=== PATIENT | female | born 1950 | race Caucasian/White ===

== ENCOUNTER 2016-08-12 08:21 | Day surgery (SDC) | payer MEDICARE, BC, OTHER ==
[2016-08-07 11:15] VITALS: BMI 37.8
[~2016-08-12 08:21] MED LIST: LACTATED RINGERS 1,000 ML IV SCH; LIDOCAINE 1% 20 ML VIAL (10MG/ML) FOR IV START INTRADERMA PRN
[2016-08-12 08:54] VITALS: RESP 16; TEMP 97.1
[2016-08-12] MEDS ORDERED: PROPOFOL 10 MG/ML 20 ML VIAL IV ONE (09:13)
[2016-08-12] MEDS ORDERED: LIDOCAINE 1% INJ 10MG/ML (20 ML MDV) ONE (09:13)
--- NOTE | 2016-08-12 09:22 | P.GSHP ---
History of Present Illness H&P Date: 08/12/16 Chief Complaint: Screening colonoscopy This is a 66-year-old female referred from Dr. perkins. Patient presents today for screening colonoscopy. Past Medical History Past Medical History: GERD/Reflux, Respiratory Disorder Additional Past Medical History / Comment(s): STATES DR MONITORING ELEVATED BLOODPRESSURE., SCHEDULED FOR SLEEP STUDY, HAS COUGH DUE TO ALLERGIES. History of Any Multi-Drug Resistant Organisms: None Reported Past Surgical History: Appendectomy, Bladder Surgery, Breast Surgery, Cholecystectomy, Hernia Repair, Hysterectomy Additional Past Surgical History / Comment(s): HIATAL HERNIA REPAIR, UMBILICAL HERNIA, BREAST REDUCTION, PARTIAL HYSTERECTOMY, BLADDER SUSPENSION X2, TUBAL . Past Anesthesia/Blood Transfusion Reactions: No Reported Reaction, Family History of Problems w/ Anesthesia, Motion Sickness Additional Past Anesthesia/Blood Transfusion Reaction / Comment(s): MOTHER HAS DIFFICULTY WAKING UP. Past Psychological History: No Psychological Hx Reported Smoking Status: Never smoker Past Alcohol Use History: Occasional Additional Past Alcohol Use History / Comment(s): 4-5 DRINKS ON WEEKEND. Past Drug Use History: None Reported - Past Family History Mother Family Medical History: No Reported History Medications and Allergies Home Medications Medication Instructions Recorded Confirmed Type Benzonatate [Tessalon Perles] 200 mg PO Q8HR PRN 08/07/16 08/07/16 History Ergocalciferol [Vitamin D2] 50,000 unit PO Q7D 08/07/16 08/07/16 History Montelukast [Singulair] 10 mg PO DAILY 08/07/16 08/07/16 History Omeprazole [PriLOSEC] 40 mg PO DAILY 08/07/16 08/07/16 History Raloxifene [Evista] 60 mg PO DAILY 08/07/16 08/07/16 History Sudafed (Unknown Dose) 1 tab PO DIRECTED PRN 08/07/16 08/12/16 History Allergies Allergy/AdvReac Type Severity Reaction Status Date / Time eucalyptus Allergy Unknown Cough Verified 08/07/16 11:05 gluten Allergy Unknown Cough, Verified 08/07/16 11:05 Stomach symptoms. perfume Allergy Unknown Cough Verified 08/07/16 11:05 Sulfa (Sulfonamide Allergy Unknown Itching, Verified 08/07/16 11:05 Antibiotics) Rash Surgical - Exam Vital Signs Temp Pulse Resp BP Pulse Ox 97.1 F L 78 16 135/93 94 L 08/12/16 08:52 08/12/16 08:52 08/12/16 08:52 08/12/16 08:52 08/12/16 08:52 - General well developed, no distress - Eyes PERRL - ENT normal pinna - Neck no masses - Respiratory normal expansion - Cardiovascular Rhythm: regular - Abdomen Abdomen: soft, non tender Assessment and Plan Plan: We'll perform screening colonoscopy.
--- NOTE | 2016-08-12 09:48 | P.OP ---
Date of Procedure: 08/12/16 Preoperative Diagnosis: Screening colonoscopy Postoperative Diagnosis: Diverticulosis Right colon polyp Procedure(s) Performed: Colonoscopy Anesthesia: MAC Surgeon: Fritz Nam Pathology: other (Right colon polyp) Condition: stable Disposition: PACU Description of Procedure: The patient's placed on the endoscopy table lateral position. She received IV sedation. Digital rectal exam was performed which revealed no abnormalities. The flexible colonoscope was then placed patient anus passed throughout the entire colon. The ileocecal valve appeared normal. In the cecum there was a small colon polyp was removed the forcep. The transverse colon and descending colon appeared normal. In the sigmoid colon is mild diverticular changes. The scope was then brought back the rectum and this appeared normal. Scope was withdrawn for patient.
[2016-08-12 10:05] VITALS: BP 129/87; PULSE 79
== END 2016-08-12 10:37 | disposition home or self-care (01) ==
LOC: ORWHC2ENDO 08:21
PROVIDERS: ATTEND Surgery
DX: Z12.11 Encounter for screening for malignant neoplasm of colon (principal); D12.2 Benign neoplasm of ascending colon; K57.30 Diverticulosis of large intestine without perforation or abscess without bleeding; K21.9 Gastro-esophageal reflux disease without esophagitis; Z88.2 Allergy status to sulfonamides; Z91.02 Food additives allergy status; Z79.899 Other long term (current) drug therapy; Z79.810 Long term (current) use of selective estrogen receptor modulators (SERMs)
CPT/HCPCS: 88305; 45380; J2001; J2704; 99153

== ENCOUNTER → 2016-08-18 | Outpatient (CLI) | payer MEDICARE, OTHER ==
--- NOTE | 2016-08-19 08:17 | MM ---
Reason for exam: screening (asymptomatic). Last mammogram was performed 1 year ago. History: Patient is postmenopausal. Family history of breast cancer in maternal aunt. Benign left mammotome panel of the left breast, May 31, 2012. Reductions of both breasts, December 2010. Physical Findings: A clinical breast exam by your physician is recommended on an annual basis and results should be correlated with mammographic findings. MG Screening Mammo w CAD Bilateral CC and MLO view(s) were taken. Prior study comparison: August 07, 2015, bilateral MG screening mammo w CAD. July 07, 2014, right breast MG work up mamm w CAD RT. May 23, 2013, CAD bilateral diagnostic mammogram. There are scattered fibroglandular densities. Finding: There are typically benign vascular, round calcifications in both breasts. Previous mammotome biopsy in the left breast x 3. Asymmetric breast tissue in the right breast posterior upper outer quadrant, stable. There is no discrete abnormality. ASSESSMENT: Benign, BI-RAD 2 RECOMMENDATION: Routine screening mammogram of both breasts in 1 year.
== END | disposition home or self-care (01) ==
LOC: RADMAMWWP 08-13 06:50
PROVIDERS: ATTEND Family Medicine
DX: Z12.31 Encounter for screening mammogram for malignant neoplasm of breast (principal)

== ENCOUNTER → 2017-12-16 | Outpatient (CLI) | payer MEDICARE, OTHER ==
--- NOTE | 2017-12-17 08:33 | MM ---
Reason for exam: screening (asymptomatic). Last mammogram was performed 1 year and 4 months ago. History: Patient is postmenopausal. Family history of breast cancer in maternal aunt. Benign left mammotome panel of the left breast, May 31, 2012. Reductions of both breasts, December 2010. Physical Findings: A clinical breast exam by your physician is recommended on an annual basis and results should be correlated with mammographic findings. MG Screening Mammo w CAD Bilateral CC and MLO view(s) were taken. Prior study comparison: August 18, 2016, bilateral MG screening mammo w CAD. August 07, 2015, bilateral MG screening mammo w CAD. There are scattered fibroglandular densities. Benign appearing bilateral calcifications. No suspicious abnormality. No significant changes when compared with prior studies. ASSESSMENT: Benign, BI-RAD 2 RECOMMENDATION: Routine screening mammogram of both breasts in 1 year.
== END | disposition home or self-care (01) ==
LOC: RADMAMWWP 07:08
PROVIDERS: ATTEND Family Medicine
DX: Z12.31 Encounter for screening mammogram for malignant neoplasm of breast (principal)
CPT/HCPCS: 77067

== ENCOUNTER → 2019-01-11 | Outpatient (CLI) | payer MEDICARE ==
--- NOTE | 2019-01-12 09:00 | MM ---
Reason for exam: screening (asymptomatic). Last mammogram was performed 1 year and 1 month ago. History: Patient is postmenopausal. Family history of breast cancer in maternal aunt. Benign left mammotome panel of the left breast, May 31, 2012. Reductions of both breasts, December 2010. Physical Findings: A clinical breast exam by your physician is recommended on an annual basis and results should be correlated with mammographic findings. MG Screening Mammo w CAD Bilateral CC and MLO view(s) were taken. Prior study comparison: December 16, 2017, bilateral MG screening mammo w CAD. August 18, 2016, bilateral MG screening mammo w CAD. There are scattered fibroglandular densities. Previous mammotome biopsy in the left breast x 3. There is chronic nodularity in the left breast. A couple medial inferior cutaneous lesion right breast seen in 2015. No significant changes when compared with prior studies. ASSESSMENT: Benign, BI-RAD 2 RECOMMENDATION: Routine screening mammogram of both breasts in 1 year.
== END | disposition home or self-care (01) ==
LOC: RADMAMWWP 06:57
PROVIDERS: ATTEND Family Medicine
DX: Z12.31 Encounter for screening mammogram for malignant neoplasm of breast (principal)
CPT/HCPCS: 77067

== ENCOUNTER → 2019-01-13 | Day surgery (SDC) | payer MEDICARE, OTHER ==
[~2019-01-13] MED LIST changes: +LIDOCAINE 1% INJ 10MG/ML (20 ML MDV) ONE; +PROPOFOL 10 MG/ML 20 ML VIAL IV ONE
[2019-01-13 07:13] VITALS: TEMP 98.1
[2019-01-13 07:16] LABS: Glucose,Whole Blood 159 mg/dL (75-99)
--- NOTE | 2019-01-13 07:52 | P.GSHP ---
History of Present Illness H&P Date: 01/13/19 Chief Complaint: History of colon polyps This is a 68-year-old female who presents today for colonoscopy. Patient had a previous colonoscopy. She's had history of colon polyps. She denies a significant checkpoints. Past Medical History Past Medical History: Diabetes Mellitus, GERD/Reflux, Hypertension, Sleep Apnea/CPAP/BIPAP Additional Past Medical History / Comment(s): OSTEOPOROSIS. CHRONIC COUGH. CPAP . History of Any Multi-Drug Resistant Organisms: None Reported Past Surgical History: Appendectomy, Bladder Surgery, Breast Surgery, Cholecystectomy, Heart Catheterization, Hernia Repair, Hysterectomy Additional Past Surgical History / Comment(s): THU FUNDOPLASTY. UMBILICAL HERNIA. BLADDER SUSP. BREAST REDUCTION. Past Anesthesia/Blood Transfusion Reactions: Motion Sickness Additional Past Anesthesia/Blood Transfusion Reaction / Comment(s): MOM TOOK A LONG TIME TO WAKE UP. Past Psychological History: No Psychological Hx Reported Smoking Status: Never smoker Past Alcohol Use History: Occasional Past Drug Use History: None Reported Medications and Allergies Home Medications Medication Instructions Recorded Confirmed Type Ergocalciferol [Vitamin D2] 50,000 unit PO JAMES 08/07/16 01/13/19 History Montelukast [Singulair] 10 mg PO QAM 08/07/16 01/13/19 History Omeprazole [PriLOSEC] 40 mg PO QAM 08/07/16 01/13/19 History Raloxifene [Evista] 60 mg PO QAM 08/07/16 01/13/19 History Amitriptyline HCl [Elavil] 25 mg PO HS 01/11/19 01/13/19 History Losartan [Cozaar] 50 mg PO QAM 01/11/19 01/13/19 History amLODIPine [Norvasc] 5 mg PO QAM 01/11/19 01/13/19 History metFORMIN HCL [Glucophage] 500 mg PO BID 01/11/19 01/13/19 History Allergies Allergy/AdvReac Type Severity Reaction Status Date / Time eucalyptus Allergy Unknown Cough Verified 01/13/19 07:04 gluten Allergy Unknown Cough, Verified 01/13/19 07:04 Stomach symptoms. perfume Allergy Unknown Cough Verified 01/13/19 07:04 Sulfa (Sulfonamide Allergy Unknown Itching, Verified 01/13/19 07:04 Antibiotics) Rash Surgical - Exam Vital Signs Temp Pulse Resp BP Pulse Ox 98.1 F 83 17 145/86 94 L 01/13/19 07:12 01/13/19 07:12 01/13/19 07:12 01/13/19 07:12 01/13/19 07:12 - General well developed, well nourished, no distress - Eyes PERRL - ENT normal pinna - Neck no masses - Respiratory normal expansion - Cardiovascular Rhythm: regular - Abdomen Abdomen: soft, non tender Results - Labs Abnormal Lab Results - Last 24 Hours (Table) 01/13/19 Range/Units 07:13 POC Glucose (mg/dL) 159 H (75-99) mg/dL Assessment and Plan Assessment: History of colon polyps. We'll perform colonoscopy.
--- NOTE | 2019-01-13 08:12 | P.OP ---
Date of Procedure: 01/13/19 Preoperative Diagnosis: History of colon polyps Postoperative Diagnosis: Right colon polyp, hepatic flexure polyp. Diverticulosis External hemorrhoids Procedure(s) Performed: Colonoscopy Anesthesia: MAC Surgeon: Fritz Nam Pathology: other (Right colon polyp, hepatic flexure polyp) Condition: stable Disposition: PACU Description of Procedure: The patient's placed on the endoscopy table in the lateral position. She received IV sedation. Digital rectal exam was performed which revealed external hemorrhoids. Flexible colonoscope was then placed patient anus passed throughout the entire colon. The ileocecal valve was visually. In the right colon there was a small sessile polyp was removed with cold forcep. Scope was then brought back and at the level hepatic flexure there was another polyp seen this removed with the snare. In the transverse colon was a few scattered diverticula. In the descending and; there were a few more diverticula seen. There is no evidence of diverticulitis. The scope was then brought back the rectum and this appeared normal. Scope was withdrawn for patient.
[2019-01-13 08:37] VITALS: BP 120/79; PULSE 74; RESP 18
== END ==
LOC: ORWHC2ENDO 06:44
PROVIDERS: ATTEND Surgery
DX: Z12.11 Encounter for screening for malignant neoplasm of colon (principal); D12.3 Benign neoplasm of transverse colon; D12.2 Benign neoplasm of ascending colon; K57.30 Diverticulosis of large intestine without perforation or abscess without bleeding; K64.4 Residual hemorrhoidal skin tags; K21.9 Gastro-esophageal reflux disease without esophagitis; E11.9 Type 2 diabetes mellitus without complications; I10 Essential (primary) hypertension; G47.33 Obstructive sleep apnea (adult) (pediatric); Z99.89 Dependence on other enabling machines and devices; M81.0 Age-related osteoporosis without current pathological fracture; R05 Cough; Z90.49 Acquired absence of other specified parts of digestive tract; Z90.710 Acquired absence of both cervix and uterus; Z79.84 Long term (current) use of oral hypoglycemic drugs; Z79.890 Hormone replacement therapy; Z79.899 Other long term (current) drug therapy; Z91.02 Food additives allergy status; Z88.2 Allergy status to sulfonamides; Z91.09 Other allergy status, other than to drugs and biological substances
CPT/HCPCS: 88305; 45380; 45385; J2001; J2704

== ENCOUNTER → 2020-02-17 | Outpatient (CLI) | payer MEDICARE ==
--- NOTE | 2020-02-20 09:52 | MM ---
Reason for exam: screening (asymptomatic). Last mammogram was performed 1 year and 1 month ago. History: Patient is postmenopausal. Family history of breast cancer in maternal aunt. Benign left mammotome panel of the left breast, May 31, 2012. Reductions of both breasts, December 2010. Physical Findings: A clinical breast exam by your physician is recommended on an annual basis and results should be correlated with mammographic findings. MG Screening Mammo w CAD Bilateral CC and MLO view(s) were taken. Prior study comparison: January 11, 2019, bilateral MG screening mammo w CAD. December 16, 2017, bilateral MG screening mammo w CAD. The breast tissue is heterogeneously dense. This may lower the sensitivity of mammography. Stable benign calcifications. There is no discrete abnormality. Focal asymmetry upper outer right breast is stable. No significant changes when compared with prior studies. ASSESSMENT: Benign, BI-RAD 2 RECOMMENDATION: Routine screening mammogram of both breasts in 1 year.
== END | disposition home or self-care (01) ==
LOC: RADMAMWWP 07:25
PROVIDERS: ATTEND Family Medicine
DX: Z12.31 Encounter for screening mammogram for malignant neoplasm of breast (principal)
CPT/HCPCS: 77067

== ENCOUNTER 2020-06-08 19:26 | Inpatient (IN) | payer MEDICARE ==
--- NOTE | 2020-06-08 20:14 | XR ---
EXAMINATION TYPE: XR chest 2V DATE OF EXAM: 06/08/2020 COMPARISON: 04/29/2013 HISTORY: Short of breath TECHNIQUE: FINDINGS: There is extensive patchy infiltrate in both lungs. This is interstitial and airspace. Ther e is no pleural effusion. Heart size is normal. Thoracic aorta is intact. There are no hilar masses. IMPRESSION: Bilateral diffuse pneumonia is new compared to old exam. Normal heart.
[2020-06-08] MEDS ORDERED: SODIUM CHLORIDE 0.9% 1,000 ML IV ONE (20:42)
--- NOTE | 2020-06-08 20:45 | ED ---
General Adult HPI - General Source: patient, RN notes reviewed, old records reviewed Mode of arrival: ambulatory Limitations: no limitations <Denice Fields - Last Filed: 06/08/20 23:13> <Marlene Moore - Last Filed: 06/09/20 22:22> - General Chief complaint: Weakness Stated complaint: Weakness Time Seen by Provider: 06/08/20 20:26 - History of Present Illness Initial comments: this Patient is a 70-year-old female presents emergency department today for evaluation for complaints of weakness shortness of breath nausea and vomiting. She was diagnosed with COVID 19 infection on May 29. Patient reports t hat her father was diagnosed with Covid and recently . Patient had been self quarantining since May 24. Patient states that at home she's been taking nausea medication and prescribed azithromycin and Medrol Dosepak. She is a type II diabetic. She states that she's been feeling severely weak fatigued and can't walk within her household without becoming severely short of breath and lightheaded. Patient states that she has had a relatively nonproductive cough. She is a nonsmoker. (Denice Fields) - Related Data Home Medications Medication Instructions Recorded Confirmed Ergocalciferol [Vitamin D2] 50,000 unit PO JAMES 08/07/16 06/08/20 Montelukast [Singulair] 10 mg PO QAM 08/07/16 06/08/20 Omeprazole [PriLOSEC] 40 mg PO QAM 08/07/16 06/08/20 Raloxifene [Evista] 60 mg PO QAM 08/07/16 06/08/20 Amitriptyline HCl [Elavil] 25 mg PO HS PRN 01/11/19 06/08/20 Losartan [Cozaar] 50 mg PO QAM 01/11/19 06/08/20 amLODIPine [Norvasc] 5 mg PO QAM 01/11/19 06/08/20 metFORMIN HCL [Glucophage] 500 mg PO DAILY 01/11/19 06/08/20 Pioglitazone HCl 30 mg PO DAILY 06/08/20 06/08/20 Repaglinide [Prandin] 1 mg PO DAILY 06/08/20 06/08/20 Allergies Allergy/AdvReac Type Severity Reaction Status Date / Time eucalyptus Allergy Unknown Cough Verified 06/08/20 20:52 gluten Allergy Unknown Cough, Verified 06/08/20 20:52 Stomach symptoms. perfume Allergy Unknown Cough Verified 06/08/20 20:52 Sulfa (Sulfonamide Allergy Unknown Itching, Verified 06/08/20 20:52 Antibiotics) Rash Review of Systems ROS Other: All systems not noted in ROS Statement are negative. <Denice Fields - Last Filed: 06/08/20 23:13> ROS Other: All systems not noted in ROS Statement are negative. <Marlene Moore - Last Filed: 06/09/20 22:22> ROS Statement: Those systems with pertinent positive or pertinent negative responses have been documented in the HPI. General Exam Limitations: no limitations General appearance: alert, in no apparent distress Head exam: Present: atraumatic, normocephalic, normal inspection Eye exam: Present: normal appearance, PERRL, EOMI. Absent: scleral icterus, conjunctival injection, periorbital swelling ENT exam: Present: normal exam, mucous membranes moist Neck exam: Present: normal inspection. Absent: tenderness, meningismus, lymphadenopathy Respiratory exam: Present: normal lung sounds bilaterally. Absent: respiratory distress, wheezes, rales, rhonchi, stridor Cardiovascular Exam: Present: regular rate, normal rhythm, normal heart sounds. Absent: systolic murmur, diastolic murmur, rubs, gallop, clicks GI/Abdominal exam: Present: soft, normal bowel sounds. Absent: distended, t enderness, guarding, rebound, rigid Extremities exam: Present: normal inspection, full ROM, normal capillary refill. Absent: tenderness, pedal edema, joint swelling, calf tenderness Back exam: Present: normal inspection Neurological exam: Present: alert, oriented X3, CN II-XII intact Psychiatric exam: Present: normal affect, normal mood <Denice Fields - Last Filed: 06/08/20 23:13> - General Exam Comments Initial Comments: Patient 70-year-old female. Patient appears ill and fatigued. Labored breathing with conversation (Denice Fields) Course Vital Signs 06/08/20 06/08/20 06/08/20 19:29 21:24 22:26 Temperature 99.2 F Pulse Rate 102 H 91 84 Pulse Rate [ Pulse Oximetery ] Respiratory 18 22 21 Rate Blood Pressure 108/69 126/82 115/90 Blood Pressure [Right Arm] O2 Sat by Pulse 95 95 95 Oximetry 06/08/20 06/09/20 06/09/20 23:00 00:49 01:31 Temperature 98.9 F Pulse Rate 79 85 75 Pulse Rate [ Pulse Oximetery ] Respiratory 18 16 16 Rate Blood Pressure 118/65 123/71 130/82 Blood Pressure [Right Arm] O2 Sat by Pulse 96 95 95 Oximetry 06/09/20 06/09/20 06/09/20 03:00 08:00 09:40 Temperature Pulse Rate 71 86 Pulse Rate [ 86 Pulse Oximetery ] Respiratory 24 20 Rate Blood Pressure 108/71 136/78 Blood Pressure [Right Arm] O2 Sat by Pulse 96 96 Oximetry 06/09/20 14:00 Temperature 97.6 F Pulse Rate Pulse Rate [ 88 Pulse Oximetery ] Respiratory 18 Rate Blood Pressure Blood Pressure 126/76 [Right Arm] O2 Sat by Pulse 93 L Oximetry EKG Findings - EKG Comments: EKG Findings:: EKG shows normal sinus rhythm possible a suture enlargement. Inferior infarct age undetermined. Abnormal EKG. Ventricular rate of 88 bpm. Intervals 162 ms. QRS duration is 84 ms. QT EC is 352/425 ms. <Denice Fields - Last Filed: 06/08/20 23:13> Medical Decision Making - Lab Data Result diagrams: 06/08/20 21:12 06/08/20 21:12 - Radiology Data Radiology results: report reviewed <Denice Fields - Last Filed: 06/08/20 23:13> - Lab Data Result diagrams: 06/08/20 21:12 06/08/20 21:12 <Marlene Moore - Last Filed: 06/09/20 22:22> - Medical Decision Making 70-year-old female presents returns today complaint of weakness shortness of breath nausea vomiting. She was diagnosed with Covid 19 infection on May 30. At this time Patientchest x-ray shows evidence of bilateral pneumonia. On conversation she had low oxygen saturation 89-90% on room air. She is placed on 3 L of oxygen. Patient had lab work showing positive inflammatory markers consi stent with pereira virus infection. Patient unfortunately recently dull with her father's passing due to coronavirus infection.at this time with concern for weakness hypoxia Patient will be admitted at this time. I discussed the case with Annette Membreno, whom accepts admission for [facility]. (Denice Fields) I was available for consultation in the emergency department. The history and physical exam were done by the midlevel provider. I was consulted for this patients care. I reviewed the case with the midlevel provider and based on their presentation of the patient, I agree with the assessment, medical decision making and plan of care as documented. Chart was dictated using [employer] dictation software. Attempts were made to correct any dictation errors however some typographical errors may persist. Patient seen during the covid 19 pandemic (Marlene Moore) - Lab Data Lab Results 06/08/20 06/08/20 06/08/20 Range/Units 21:12 21:12 21:12 WBC 7.8 (3.8-10.6) k/uL RBC 4.67 (3.80-5.40) m/uL Hgb 15.0 (11.4-16.0) gm/dL Hct 44.0 (34.0-46.0) % MCV 94.1 (80.0-100.0) fL MCH 32.0 (25.0-35.0) pg MCHC 34.0 (31.0-37.0) g/dL RDW 13.2 (11.5-15.5) % Plt Count 341 (150-450) k/uL MPV 7.1 Neutrophils % 81 % Lymphocytes % 8 % Monocytes % 7 % Eosinophils % 2 % Basophils % 1 % Neutrophils # 6.4 (1.3-7.7) k/uL Lymphocytes # 0.6 L (1.0-4.8) k/uL Monocytes # 0.5 (0-1.0) k/uL Eosinophils # 0.2 (0-0.7) k/uL Basophils # 0.0 (0-0.2) k/uL PT 10.2 (9.0-12.0) sec INR 1.0 (<1.2) APTT 21.9 L (22.0-30.0) sec D-Dimer 0.74 H (<0.60) mg/L FEU Sodium 134 L (137-145) mmol/L Potassium 4.6 (3.5-5.1) mmol/L Chloride 103 (98-107) mmol/L Carbon Dioxide 21 L (22-30) mmol/L Anion Gap 10 mmol/L BUN 17 (7-17) mg/dL Creatinine 0.78 (0.52-1.04) mg/dL Est GFR (CKD-EPI)AfAm >90 (>60 ml/min/1.73 sqM) Est GFR (CKD-EPI)NonAf 78 (>60 ml/min/1.73 sqM) Glucose 134 H (74-99) mg/dL Plasma Lactic Acid Kirit (0.7-2.0) mmol/L Calcium 9.1 (8.4-10.2) mg/dL Magnesium 2.0 (1.6-2.3) mg/dL Ferritin 441.8 H (10.0-291.0) ng/mL Total Bilirubin 1.1 (0.2-1.3) mg/dL AST 50 H (14-36) U/L ALT 34 (4-34) U/L Alkaline Phosphatase 39 (38-126) U/L Lactate Dehydrogenase 1000 H (313-618) U/L C-Reactive Protein 152.3 H (<10.0) mg/L Total Protein 7.1 (6.3-8.2) g/dL Albumin 3.7 (3.5-5.0) g/dL Procalcitonin (0.02-0.09) ng/mL 06/08/20 06/08/20 Range/Units 21:12 21:12 WBC (3.8-10.6) k/uL RBC (3.80-5.40) m/uL Hgb (11.4-16.0) gm/dL Hct (34.0-46.0) % MCV (80.0-100.0) fL MCH (25.0-35.0) pg MCHC (31.0-37.0) g/dL RDW (11.5-15.5) % Plt Count (150-450) k/uL MPV Neutrophils % % Lymphocytes % % Monocytes % % Eosinophils % % Basophils % % Neutrophils # (1.3-7.7) k/uL Lymphocytes # (1.0-4.8) k/uL Monocytes # (0-1.0) k/uL Eosinophils # (0-0.7) k/uL Basophils # (0-0.2) k/uL PT (9.0-12.0) sec INR (<1.2) APTT (22.0-30.0) sec D-Dimer (<0.60) mg/L FEU Sodium (137-145) mmol/L Potassium (3.5-5.1) mmol/L Chloride (98-107) mmol/L Carbon Dioxide (22-30) mmol/L Anion Gap mmol/L BUN (7-17) mg/dL Creatinine (0.52-1.04) mg/dL Est GFR (CKD-EPI)AfAm (>60 ml/min/1.73 sqM) Est GFR (CKD-EPI)NonAf (>60 ml/min/1.73 sqM) Glucose (74-99) mg/dL Plasma Lactic Acid Kirit 1.6 (0.7-2.0) mmol/L Calcium (8.4-10.2) mg/dL Magnesium (1.6-2.3) mg/dL Ferritin (10.0-291.0) ng/mL Total Bilirubin (0.2-1.3) mg/dL AST (14-36) U/L ALT (4-34) U/L Alkaline Phosphatase (38-126) U/L Lactate Dehydrogenase (313-618) U/L C-Reactive Protein (<10.0) mg/L Total Protein (6.3-8.2) g/dL Albumin (3.5-5.0) g/dL Procalcitonin 0.16 H (0.02-0.09) ng/mL - Radiology Data Bilateral diffuse pneumonia is continue compared old exam. Normal heart. (Deniec Fields) Disposition Is patient prescribed a controlled substance at d/c from ED?: No Time of Disposition: 23:15 <Denice Fields - Last Filed: 06/08/20 23:13> <Marlene Moore - Last Filed: 06/09/20 22:22> Clinical Impression: COVID-19, Hypoxia, Pneumonia, Weakness Disposition: ADMITTED IP TO THIS HOSP Condition: Stable
[2020-06-08] MEDS: SODIUM CHLORIDE 0.9% 1,000 ML IV SCH (21:17)
[2020-06-08 21:43] LABS: African American GFR (CKD) >90 (>60 ml/min/1.73 sqM); Albumin 3.7 g/dL (3.5-5.0); Anion Gap 10 mmol/L; Calcium 9.1 mg/dL (8.4-10.2); Carbon Dioxide 21 mmol/L (22-30); Chloride 103 mmol/L (98-107); Glucose 134 mg/dL (74-99); LDH 1000 U/L (313-618); Non-African American GFR(CKD) 78 (>60 ml/min/1.73 sqM); Sodium 134 mmol/L (137-145); Total Bilirubin 1.1 mg/dL (0.2-1.3); Total Protein 7.1 g/dL (6.3-8.2)
[2020-06-08 21:48] LABS: Basophils % (A) 1 %; Eosinophils # (A) 0.2 k/uL (0-0.7); Eosinophils % (A) 2 %; Lymphocytes # (A) 0.6 k/uL (1.0-4.8); Lymphocytes % (A) 8 %; MCV 94.1 fL (80.0-100.0); Mean Platelet Volume 7.1; Monocytes # (A) 0.5 k/uL (0-1.0); Monocytes % (A) 7 %; Neutrophils # (A) 6.4 k/uL (1.3-7.7); Neutrophils % (A) 81 %; Platelet Count 341 k/uL (150-450); RBC 4.67 m/uL (3.80-5.40); RDW 13.2 % (11.5-15.5); WBC 7.8 k/uL (3.8-10.6)
[2020-06-08 21:53] LABS: C Reactive Protein 152.3 mg/L (<10.0)
[2020-06-08 21:58] LABS: ALT 34 U/L (4-34); AST 50 U/L (14-36); Alkaline Phosphatase 39 U/L (38-126); Blood Urea Nitrogen 17 mg/dL (7-17); Potassium 4.6 mmol/L (3.5-5.1)
[2020-06-08] MEDS: ALBUTEROL HFA INHALER INHALATION STA ×2 (22:00→23:16)
[2020-06-08 22:04] LABS: Partial Thromboplastin Time 21.9 sec (22.0-30.0); Prothrombin Time 10.2 sec (9.0-12.0)
[2020-06-08 22:19] LABS: D-Dimer 0.74 mg/L FEU (<0.60)
[2020-06-08] MEDS ORDERED: cefTRIAXone IN SWFI 1,000 MG/10 ML SYRINGE IVP STA (22:37)
[2020-06-08] MEDS ORDERED: IPRATROPIUM-ALBUTEROL 3 ML NEB INHALATION PRN (23:19)
[2020-06-08] MEDS ORDERED: methylPREDNISolone SOD SUCCI 125 MG/2 ML VIAL IV STA (23:19)
[2020-06-08] MEDS ORDERED: ACETAMINOPHEN TAB 500 MG TAB PO PRN (23:22)
[2020-06-08] MEDS ORDERED: AMITRIPTYLINE HCL 25 MG TAB PO PRN (23:24)
[2020-06-09] MEDS ORDERED: DOXYCYCLINE 100 MG in SODIUM CHLORIDE 0.9% 100 ML IVPB SCH (00:30)
[2020-06-09 03:53] LABS: Ferritin 441.8 ng/mL (10.0-291.0)
[2020-06-09] MEDS: SODIUM CHLORIDE 0.9% 1,000 ML IV SCH ×2 (05:27→17:33)
[2020-06-09] MEDS ORDERED: methylPREDNISolone SOD SUCCI 125 MG/2 ML VIAL IV SCH (06:00)
[2020-06-09] MEDS: INSULIN ASPART (NovoLOG) 100 UNIT/ML VIAL SQ SCH ×4 (08:04→20:12)
[2020-06-09] MEDS: RALOXIFENE 60 MG TAB PO SCH (08:51)
[2020-06-09] MEDS: dexAMETHasone 2 MG TAB PO SCH (08:51)
[2020-06-09] MEDS: PIOGLITAZONE 30 MG TAB PO SCH (08:51)
[2020-06-09] MEDS: ASCORBIC ACID 500 MG TAB PO SCH (08:52)
[2020-06-09] MEDS: PANTOPRAZOLE 40 MG TABLET PO SCH (08:52)
[2020-06-09] MEDS: LOSARTAN 50 MG TAB PO SCH (08:52)
[2020-06-09] MEDS: amLODIPine 5 MG TAB PO SCH (08:52)
[2020-06-09] MEDS: ZINC SULFATE 220 MG CAP PO SCH (08:52)
[2020-06-09] MEDS: ENOXAPARIN 40 MG/0.4 ML SYRINGE SQ SCH (08:53)
[2020-06-09] MEDS ORDERED: metFORMIN 500 MG TAB PO SCH (09:00)
[2020-06-09 09:01] LABS: Glucose,Whole Blood 179 mg/dL (75-99)
[2020-06-09] MEDS: ALBUTEROL HFA INHALER INHALATION SCH ×4 (09:45→19:15)
--- NOTE | 2020-06-09 10:29 | CONS ---
CONSULTATION PULMONARY/CRITICAL CARE CONSULTATION: DATE OF SERVICE: June 09, 2020 REASON FOR CONSULTATION: Weakness. HISTORY OF PRESENT ILLNESS: 70-year-old female presents to the emergency department for evaluation of weakness. She did have some mild shortness of breath, nausea and vomiting. Mostly GI issues. She apparently was diagnosed with COVID-19 infection on Thursday, May 29, the Thursday before . She states apparently her father recently from Covid infection. She has been quarantining herself for some period of time. She has been taking medications for nausea. Anyway, she was just feeling very weak and fatigued, really could not walk or do anything around the home. For that reason, she came into the emergency room to be evaluated. Her cough is relatively mild and nonproductive. She is a nonsmoker. Her primary care physician is Dr. Paredes. Currently, she is getting saline at 100 mL an hour and O2 of 4 L/minute by nasal cannula. CURRENT HOME MEDICATIONS: Include vitamin D2, Singulair, Prilosec, Evista, Elavil, Cozaar, Norvasc, Glucophage, pioglitazone, and Prandin. ALLERGIES: Include eucalyptus, gluten, perfume, and sulfa. MEDICAL HISTORY: Medical history is positive for diabetes mellitus, GERD, hypertension, sleep apnea syndrome, and osteoporosis. SURGICAL HISTORY: Includes appendectomy, bladder surgery, breast surgery, cholecystectomy, heart catheterization, hernia repair, and hysterectomy. She has also had a Jak fundal plication surgery, and her breast surgery was a breast reduction. SOCIAL HISTORY: Positive for occasional alcohol. No illicit drug use. Hence, she is a lifelong nonsmoker. REVIEW OF SYSTEMS: CONSTITUTIONAL weakness, fatigue. NEUROLOGIC negative. HEENT negative. CARDIOVASCULAR negative. PULMONARY: Mild shortness of breath, nonproductive cough. GI is nausea, vomiting, abdominal cramping. negative. RHEUMATOLOGIC negative. IMMUNOLOGIC negative. ENDOCRINOLOGIC negative. DERMATOLOGIC: Negative. PHYSICAL EXAMINATION: VITAL SIGNS: Current vital signs include temperature 98.9, heart rate 71, respiratory rate 24, blood pressure is 108/71, mean 83, 2 L saturation 96%. GENERAL: Appears in no acute distress. HEENT: Examination is grossly unremarkable. Nasal O2 in place. NECK: Supple full range of motion. No adenopathy. Neck veins are flat. CARDIOVASCULAR: Examination reveals regular rhythm and rate. Heart rate 71 beats per minute. S1, S2 normal. LUNGS: Reveal mostly clear breath sounds. A few scattered mild rhonchi. No wheezes or crackles. ABDOMEN: Soft. EXTREMITIES are intact. No edema. SKIN: Without rash. NEUROLOGIC: Examination is nonfocal. LABS: Reviewed. White count 7.8, hemoglobin 15, hematocrit 44.0, platelet count is 341,000. The patient is a bit lymphopenic. PT 10.2, INR 1, PTT is 21.9. D-dimer 0.74. Sodium 134, potassium 4.6, chloride 103, CO2 21, anion gap is normal. BUN and creatinine were 17 and 0.78. Glucose 134, ferritin 442, AST 50, LDH 1000. C-reactive protein 152.3. Procalcitonin 0.16. A chest x-ray done yesterday shows bilateral patchy infiltrates. Medications reviewed. The patient is on Tylenol, albuterol inhaler, Elavil, amlodipine, ceftriaxone, doxycycline, Lovenox, vitamin D2, insulin, DuoNeb, losartan, metformin, Solu-Medrol, Singulair, Protonix, Actos, Evista, Prandin and saline. ASSESSMENT: 1. COVID-19 pneumonitis/pneumonia and very mild hypoxemic respiratory failure. 2. COVID 19 gastrointestinal symptoms primarily. 3. History of diabetes mellitus. 4. History of gastroesophageal reflux disease. 5. Hypertension. 6. History of sleep apnea syndrome. 7. Osteoporosis. 8. Multiple surgical procedures including a Jak fundoplication. PLAN: The patient's medications are adjusted. She will be placed on albuterol inhaler and Decadron. We will give her vitamin C, vitamin D3, and zinc. She should be on Decadron 6 mg p.o. daily for 10 days. Additional recommendations and suggestions are forthcoming. She is beyond the Remdesivir window and her respiratory symptoms are not significant enough to be placed on Remdesivir. No additional recommendations are made. Additional antibiotics are likely not indicated in this patient and should be discontinued. MMODL / IJN: [id number] /
[2020-06-09] MEDS: CHOLECALCIFEROL 400 UNIT TAB PO SCH (13:21)
[2020-06-09 13:31] LABS: Glucose,Whole Blood 168 mg/dL (75-99)
[2020-06-09 16:42] LABS: Glucose,Whole Blood 199 mg/dL (75-99)
[2020-06-09] MEDS: REPAGLINIDE 1 MG TAB PO SCH (17:35)
[2020-06-09 20:04] LABS: Glucose,Whole Blood 169 mg/dL (75-99)
[2020-06-09] MEDS: MONTELUKAST 10 MG TAB PO SCH (20:12)
--- NOTE | 2020-06-10 00:50 | P.HPIM ---
History of Present Illness H&P Date: 06/09/20 Chief Complaint: fatigue, weakness, Nausea Ms. Cruz is a 70-year-old female with a past medical history of diabetes mellitus and hypertension coming to the hospital with a chief complaint of generalized weakness along with difficulty in breathing and vomiting. Patient was recently diagnosed with COVID-19 infection on May 29. Patient's father from Covid recently. Patient has been taking azithromycin and Medrol Dosepak at home. Patient continues to have nausea vomiting along with diarrhea and was feeling very weak and fatigued so came into the emergency for further evaluation. In the ER patient was found to have positive inflammatory markers consistent with coronavirus infection and chest x-ray showing evidence of bilateral pneum onia patient has been saturating in low 90s on 3 L of oxygen. So patient has been admitted for further management. Review of Systems Constitutional: +ve for generalized weakness . No weight loss. Abdomen: As per HPI Cardiovascular: Patient denies any chest pain or short of breath no palpitations. Respiratory: mild SOB Neurologic: Patient denied any numbness or tingling headache. Musculoskeletal: Patient denies any complaints of joint swelling or deformity. Skin: no rash Psychiatric: no anxiety or depression Endocrine: No heat or cold intolerance. No recent weight gain. Genitourinary: No dysuria or hematuria. All other 14 point ROS negative except the above Past Medical History Past Medical History: Diabetes Mellitus, Hypertension History of Any Multi-Drug Resistant Organisms: None Reported Past Surgical History: Appendectomy, Breast Surgery, Cholecystectomy, Hysterectomy, Tubal Ligation Additional Past Surgical History / Comment(s): partial hysto, hital hernia, breast reduction Past Anesthesia/Blood Transfusion Reactions: No Reported Reaction Past Psychological History: No Psychological Hx Reported Smoking Status: Never smoker Past Drug Use History: None Reported Medications and Allergies Home Medications Medication Instructions Recorded Confirmed Type Ergocalciferol [Vitamin D2] 50,000 unit PO JAMES 08/07/16 06/08/20 History Montelukast [Singulair] 10 mg PO QAM 08/07/16 06/08/20 History Omeprazole [PriLOSEC] 40 mg PO QAM 08/07/16 06/08/20 History Raloxifene [Evista] 60 mg PO QAM 08/07/16 06/08/20 History Amitriptyline HCl [Elavil] 25 mg PO HS PRN 01/11/19 06/08/20 History Losartan [Cozaar] 50 mg PO QAM 01/11/19 06/08/20 History amLODIPine [Norvasc] 5 mg PO QAM 01/11/19 06/08/20 History metFORMIN HCL [Glucophage] 500 mg PO DAILY 01/11/19 06/08/20 History Pioglitazone HCl 30 mg PO DAILY 06/08/20 06/08/20 History Repaglinide [Prandin] 1 mg PO DAILY 06/08/20 06/08/20 History Allergies Allergy/AdvReac Type Severity Reaction Status Date / Time eucalyptus Allergy Unknown Cough Verified 06/08/20 20:52 gluten Allergy Unknown Cough, Verified 06/08/20 20:52 Stomach symptoms. perfume Allergy Unknown Cough Verified 06/08/20 20:52 Sulfa (Sulfonamide Allergy Unknown Itching, Verified 06/08/20 20:52 Antibiotics) Rash Physical Exam Vitals: Vital Signs Temp Pulse Pulse Resp BP Pulse Ox 06/09/20 09:40 86 20 136/78 96 06/09/20 08:00 86 06/09/20 03:00 71 24 108/71 96 06/09/20 01:31 75 16 130/82 95 06/09/20 00:49 98.9 F 85 16 123/71 95 06/08/20 23:00 79 18 118/65 96 06/08/20 22:26 84 21 115/90 95 06/08/20 21:24 91 22 126/82 95 06/08/20 19:29 99.2 F 102 H 18 108/69 95 Intake and Output 06/08/20 06/09/20 06/09/20 22:59 06:59 14:59 Other: Voiding Method Toilet # Voids 1 Weight 93.894 kg 93.894 kg PHYSICAL EXAMINATION: Patient is lying in the bed comfortably, no acute distress, awake alert and heriberto ented. HEENT: Normocephalic. Neck is supple. Pupils reactive. Nostrils clear. Oral cavity is moist. Ears reveal no drainage. Neck reveals no JVD, carotid bruits, or thyromegaly. CHEST EXAMINATION: Decreased BS in all lung mays. CARDIAC: Normal S1, S2 with no gallops. No murmurs ABDOMEN: Soft. Bowel sounds normal. No organomegaly. No abdominal bruits. Extremities: reveal no edema. No clubbing or cyanosis Neurologically awake, alert, oriented x3 with well-coordinated movements. No focal deficits noted Skin: No rash or skin lesions. Psychiatric: Coperative. Nonsuicidal Musculoskeletal: No joint swelling or deformity. Normal range of motion. Results CBC & Chem 7: 06/08/20 21:12 06/08/20 21:12 Labs: Abnormal Lab Results - Last 24 Hours (Table) 06/08/20 06/08/20 06/08/20 Range/Units 21:12 21:12 21:12 Lymphocytes # 0.6 L (1.0-4.8) k/uL APTT 21.9 L (22.0-30.0) sec D-Dimer 0.74 H (<0.60) mg/L FEU Sodium 134 L (137-145) mmol/L Carbon Dioxide 21 L (22-30) mmol/L Glucose 134 H (74-99) mg/dL POC Glucose (mg/dL) (75-99) mg/dL Ferritin 441.8 H (10.0-291.0) ng/mL AST 50 H (14-36) U/L Lactate Dehydrogenase 1000 H (313-618) U/L C-Reactive Protein 152.3 H (<10.0) mg/L Procalcitonin (0.02-0.09) ng/mL 06/08/20 06/09/20 Range/Units 21:12 08:50 Lymphocytes # (1.0-4.8) k/uL APTT (22.0-30.0) sec D-Dimer (<0.60) mg/L FEU Sodium (137-145) mmol/L Carbon Dioxide (22-30) mmol/L Glucose (74-99) mg/dL POC Glucose (mg/dL) 179 H (75-99) mg/dL Ferritin (10.0-291.0) ng/mL AST (14-36) U/L Lactate Dehydrogenase (313-618) U/L C-Reactive Protein (<10.0) mg/L Procalcitonin 0.16 H (0.02-0.09) ng/mL Thrombosis Risk Factor Assmnt - Choose All That Apply Any of the Below Risk Factors Present?: Yes Each Factor Represents 1 point: Obesity (BMI >25) Other Risk Factors: Yes Each Risk Factor Represents 2 Points: Age 61-74 years Other congenital or acquired thrombophilia - If yes, enter type in comment: No Thrombosis Risk Factor Assessment Total Risk Factor Score: 3 Thrombosis Risk Factor Assessment Level: Moderate Risk Assessment and Plan Assessment: ASSESSMENT Nausea vomiting -due to COVID-19 infection Hypoxic respiratory failure-Covid pneumonia Hypertension Type 2 diabetes mellitus GERD Obstructive sleep apnea Increased inflammatory markers PLAN: Patient has been started on Decadron. Continue with breathing treatments and vitamin supplementation. Pulmonary on board and following the patient. Patient has been restarted on her home medications. Further recommendations to follow depending on the progress of the patient.
[2020-06-10] MEDS: SODIUM CHLORIDE 0.9% 1,000 ML IV SCH ×2 (04:35→16:49)
[2020-06-10 07:10] LABS: Glucose,Whole Blood 146 mg/dL (75-99)
[2020-06-10 07:17] LABS: Basophils % (A) 0 %; Eosinophils % (A) 0 %; HCT 37.6 % (34.0-46.0); HGB 12.6 gm/dL (11.4-16.0); Lymphocytes # (A) 0.7 k/uL (1.0-4.8); Lymphocytes % (A) 7 %; MCH 32.1 pg (25.0-35.0); MCHC 33.7 g/dL (31.0-37.0); MCV 95.3 fL (80.0-100.0); Mean Platelet Volume 6.9; Monocytes # (A) 0.5 k/uL (0-1.0); Monocytes % (A) 5 %; Neutrophils # (A) 8.8 k/uL (1.3-7.7); Neutrophils % (A) 86 %; Platelet Count 353 k/uL (150-450); RBC 3.94 m/uL (3.80-5.40); RDW 12.8 % (11.5-15.5); WBC 10.3 k/uL (3.8-10.6)
[2020-06-10] MEDS: INSULIN ASPART (NovoLOG) 100 UNIT/ML VIAL SQ SCH ×4 (07:33→20:19)
[2020-06-10] MEDS: ENOXAPARIN 40 MG/0.4 ML SYRINGE SQ SCH (07:34)
[2020-06-10] MEDS: CHOLECALCIFEROL 400 UNIT TAB PO SCH (07:35)
[2020-06-10] MEDS: dexAMETHasone 2 MG TAB PO SCH (07:35)
[2020-06-10] MEDS: ASCORBIC ACID 500 MG TAB PO SCH (07:35)
[2020-06-10] MEDS: amLODIPine 5 MG TAB PO SCH (07:36)
[2020-06-10] MEDS: PANTOPRAZOLE 40 MG TABLET PO SCH (07:36)
[2020-06-10] MEDS: ZINC SULFATE 220 MG CAP PO SCH (07:36)
[2020-06-10] MEDS: PIOGLITAZONE 30 MG TAB PO SCH (07:37)
[2020-06-10] MEDS: LOSARTAN 50 MG TAB PO SCH (07:37)
[2020-06-10] MEDS: RALOXIFENE 60 MG TAB PO SCH (07:38)
[2020-06-10] MEDS: ALBUTEROL HFA INHALER INHALATION SCH ×4 (07:46→19:09)
[2020-06-10] MEDS ORDERED: ERGOCALCIFEROL 50,000 UNIT CAP PO SCH (09:00)
[2020-06-10 09:50] VITALS: BMI 37.8
[2020-06-10 11:31] LABS: Glucose,Whole Blood 150 mg/dL (75-99)
[2020-06-10 11:54] LABS: African American GFR (CKD) 102.5 (60.0-200.0); BUN/Creat Ratio 24.29 Ratio (12.00-20.00); Calcium 8.7 mg/dL (8.7-10.3); Non-African American GFR(CKD) 88.4 (60.0-200.0); Potassium 4.3 mmol/L (3.5-5.5)
[2020-06-10 16:47] LABS: Glucose,Whole Blood 244 mg/dL (75-99)
[2020-06-10] MEDS: REPAGLINIDE 1 MG TAB PO SCH (17:39)
--- NOTE | 2020-06-10 18:18 | PN ---
PROGRESS NOTE PULMONARY/CRITICAL CARE PROGRESS NOTE: DATE OF SERVICE: June 10, 2020 This is a 70-year-old female who we saw yesterday in consultation. The patient presented to the emergency department for evaluation of weakness. She has some mild shortness of breath, but mostly GI issues including nausea, vomiting, and some abdominal discomfort. She was diagnosis with COVID-19 infection on Thursday, May 29, the Thursday before . She states apparently her father recently from COVID infection. She apparently had been quarantining herself for some period of time. Anyway, she felt like she was having continued and worsened weakness and fatigue. She could not walk around in the house and decided to come in to be evaluated. Her cough is relatively mild and nonproductive. She is a nonsmoker. Her primary is Dr. Paredes. Currently, she is feeling a bit better. She is still having issues with her gastrointestinal tract. Her shortness of breath is about the same. Denies any fever. No chest pain or chest discomfort. PHYSICAL EXAMINATION: VITAL SIGNS: Current vital signs include temperature 97.9, heart rate 76, respiratory rate 18, blood pressure 117/70, mean 85, 4 L saturation 94%. Appears in no acute distress. HEENT: Examination is grossly unremarkable. Nasal O2 in place. NECK: Supple. Full range of motion. No adenopathy. Neck veins are flat. CARDIOVASCULAR: Examination reveals regular rhythm and rate. S1, S2 normal. No S3, S4, or murmur. LUNGS: Reveal scattered rhonchi. No wheezes or crackles. ABDOMEN: Soft. Bowel sounds are noted. No tenderness. EXTREMITIES are intact. No cyanosis, clubbing, or edema. SKIN: Without rash. NEUROLOGIC: Examination is nonfocal. LABS: Include a white count 10.3, hemoglobin 12.6, hematocrit 37.6, platelet count normal. Sodium 141, potassium 4.3, chloride 110, CO2 24, anion gap is 7. BUN and creatinine were 17 and 0.7. Microbiology is currently negative. Chest x-ray from the shows bilateral diffuse pneumonia. MEDICATIONS: Reviewed. Currently, the patient is on Tylenol, albuterol inhaler, Elavil, Norvasc, vitamin C, vitamin D3, Decadron, Lovenox, vitamin D2, insulin, Cozaar, Singulair, Protonix, Actos, Evista, Prandin, and zinc. ASSESSMENT: 1. COVID-19 pneumonitis/pneumonia with very mild hypoxemic respiratory failure. 2. COVID-19 gastrointestinal symptoms, primarily nausea, vomiting, diarrhea, abdominal discomfort, as her primary presenting complaint. 3. History of diabetes mellitus. 4. History of gastroesophageal reflux disease. 5. Hypertension. 6. History of sleep apnea syndrome. 7. Osteoporosis. 8. Multiple surgical procedures including a Jak fundoplication. PLAN: The patient's chest x-ray will be repeated tomorrow morning. We will continue with the current medications including Decadron, vitamin C, vitamin D3, and zinc. We will continue to follow. She is beyond the Remdesivir window. The respiratory symptoms were minor. She had much more in the way of GI symptoms. Additional recommendations and suggestions are forthcoming. We will still watch the patient carefully as the patient is requiring 4 L nasal cannula. MMODL / IJN: [id number] /
[2020-06-10 20:17] LABS: Glucose,Whole Blood 139 mg/dL (75-99)
[2020-06-10] MEDS: MONTELUKAST 10 MG TAB PO SCH (20:19)
--- NOTE | 2020-06-11 00:48 | P.PN ---
Subjective Progress Note Date: 06/10/20 Principal diagnosis: COVID Pneumonia Ms. Cruz is a 70-year-old female with a past medical history of diabetes mellitus and hypertension coming to the hospital with a chief complaint of generalized weakness along with difficulty in breathing and vomiting. Patient was recently diagnosed with COVID-19 infection on May 29. Patient's father from Covid recently. Patient has been taking azithromycin and Medrol Dosepak at home. Patient continues to have nausea vomiting along with diarrhea and was feeling very weak and fatigued so came into the emergency for further evaluation. In the ER patient was found to have positive inflammatory markers consistent with coronavirus infection and chest x-ray showing evidence of bilateral pneumonia patient has been saturating in low 90s on 3 L of oxygen. So patient has been admitted for further management. On 06/10/2020-patient is seen and examined. She is comfortably sitting up in a chair by the bedside appears to be in no acute distress. Patient still complaining of dry cough and mild difficulty in breathing. But states that she feels little better compared to yesterday. She still complaining of nausea but better compared to yesterday. Patient denies having any fevers, chills or rigors. No dysuria or hematuria. On reviewing the labs patient's temperature 97.6, heart rate 77 respiratory rate 22, blood pressure 116 x 71, saturating at 95% on 4 L of nasal cannula. Labs from this morning showing white count of 10.3, hemoglobin 12.6, platelets 353. Sodium 141 potassium 4.3 chloride 110, bicarb 24. Creatinine is 0.7 Active Medications Acetaminophen (Acetaminophen Tab 500 Mg Tab) 1,000 mg PO Q6HR PRN PRN Reason: Fever>101 Albuterol Sulfate (Albuterol Hfa Inhaler) 1 puff INHALATION RT-QID [facility] Last Admin: 06/10/20 19:09 Dose: 1 puff Documented by: Amitriptyline HCl (Amitriptyline Hcl 25 Mg Tab) 25 mg PO HS PRN PRN Reason: RELAX VOCAL CORDS Amlodipine Besylate (Amlodipine 5 Mg Tab) 5 mg PO QAM [facility] Last Admin: 06/10/20 07:36 Dose: 5 mg Documented by: Ascorbic Acid (Ascorbic Acid 500 Mg Tab) 1,000 mg PO DAILY [facility] Last Admin: 06/10/20 07:35 Dose: 1,000 mg Documented by: Cholecalciferol (Cholecalciferol 400 Unit Tab) 400 unit PO DAILY [facility] Last Admin: 06/10/20 07:35 Dose: 400 unit Documented by: Dexamethasone (Dexamethasone 2 Mg Tab) 6 mg PO DAILY [facility] Last Admin: 06/10/20 07:35 Dose: 6 mg Documented by: Enoxaparin Sodium (Enoxaparin 40 Mg/0.4 Ml Syringe) 40 mg SQ Q24HR [facility] Last Admin: 06/10/20 07:34 Dose: 40 mg Documented by: Ergocalciferol (Ergocalciferol 50,000 Unit Cap) 50,000 unit PO JAMES [facility] Last Admin: 06/10/20 07:37 Dose: 50,000 unit Documented by: Sodium Chloride (Saline 0.9%) 1,000 mls @ 100 mls/hr IV .Q10H [facility] Last Admin: 06/10/20 16:49 Dose: Not Given Documented by: Insulin Aspart (Insulin Aspart (Novolog) 100 Unit/Ml Vial) 0 unit SQ ACHS [facility]; Protocol Last Admin: 06/10/20 20:19 Dose: Not Given Documented by: Losartan Potassium (Losartan 50 Mg Tab) 50 mg PO QAM [facility] Last Admin: 06/10/20 07:37 Dose: 50 mg Documented by: Montelukast Sodium (Montelukast 10 Mg Tab) 10 mg PO HS [facility] Last Admin: 06/10/20 20:19 Dose: 10 mg Documented by: Pantoprazole Sodium (Pantoprazole 40 Mg Tablet) 40 mg PO QAM [facility] Last Admin: 06/10/20 07:36 Dose: 40 mg Documented by: Pioglitazone HCl (Pioglitazone 30 Mg Tab) 30 mg PO DAILY [facility] Last Admin: 06/10/20 07:37 Dose: 30 mg Documented by: Raloxifene HCl (Raloxifene 60 Mg Tab) 60 mg PO QAM [facility] Last Admin: 06/10/20 07:38 Dose: 60 mg Documented by: Repaglinide (Repaglinide 1 Mg Tab) 1 mg PO AC-SUPPER [facility] Last Admin: 06/10/20 17:39 Dose: 1 mg Documented by: Zinc Sulfate (Zinc Sulfate 220 Mg Cap) 220 mg PO DAILY [facility] Last Admin: 06/10/20 07:36 Dose: 220 mg Documented by: Objective - Vital Signs Vital signs: Vital Signs Temp 97.9 F 06/10/20 14:00 Pulse 76 06/10/20 14:00 Resp 18 06/10/20 14:00 BP 117/70 06/10/20 14:00 Pulse Ox 94 L 06/10/20 14:00 Intake & Output 06/09/20 06/10/20 06/10/20 18:59 06:59 18:59 Weight 93.894 kg Other: Voiding Method Toilet # Voids 2 2 - Exam PHYSICAL EXAMINATION: HEENT: Normocephalic. Neck is supple. Pupils reactive. Nostrils clear. Oral cavity is moist. Ears reveal no drainage. Neck reveals no JVD, carotid bruits, or thyromegaly. CHEST EXAMINATION: Decreased BS in all lung mays. CARDIAC: Normal S1, S2 with no gallops. No murmurs ABDOMEN: Soft. Bowel sounds normal. No organomegaly. No abdominal bruits. Extremities: reveal no edema. No clubbing or cyanosis Neurologically awake, alert, oriented x3 with well-coordinated movements. No focal deficits noted Skin: No rash or skin lesions. Psychiatric: Coperative. Nonsuicidal Musculoskeletal: No joint swelling or deformity. Normal range of motion. - Labs CBC & Chem 7: 06/10/20 06:32 06/10/20 06:32 Labs: Abnormal Lab Results - Last 24 Hours (Table) 06/09/20 06/10/20 06/10/20 Range/Units 20:02 06:32 06:32 Neutrophils # 8.8 H (1.3-7.7) k/uL Lymphocytes # 0.7 L (1.0-4.8) k/uL Chloride 110 H (96-109) mmol/L BUN/Creatinine Ratio 24.29 H (12.00-20.00) Ratio Glucose 162 H (70-110) mg/dL POC Glucose (mg/dL) 169 H (75-99) mg/dL 06/10/20 06/10/20 06/10/20 Range/Units 07:08 11:30 16:44 Neutrophils # (1.3-7.7) k/uL Lymphocytes # (1.0-4.8) k/uL Chloride (96-109) mmol/L BUN/Creatinine Ratio (12.00-20.00) Ratio Glucose (70-110) mg/dL POC Glucose (mg/dL) 146 H 150 H 244 H (75-99) mg/dL Microbiology - Last 24 Hours (Table) 06/08/20 21:12 Blood Culture - Preliminary Blood No Growth after 24 hours 06/08/20 21:12 Blood Culture - Preliminary Blood No Growth after 24 hours Assessment and Plan Assessment: ASSESSMENT Nausea vomiting -due to COVID-19 infection Hypoxic respiratory failure-Covid pneumonia Hypertension Type 2 diabetes mellitus GERD Obstructive sleep apnea Increased inflammatory markers PLAN: Patient has been started on Decadron. Patient's blood sugars have been running on the higher side, but patient has been refusing insulin. Continue with breathing treatments and vitamin supplementation. Pulmonary on board and following the patient. Patient has been restarted on her home medications. Further recommendations to follow depending on the progress of the patient.
[2020-06-11] MEDS: SODIUM CHLORIDE 0.9% 1,000 ML IV SCH ×2 (04:16→07:51)
[2020-06-11 06:43] LABS: Basophils % (A) 0 %; Eosinophils % (A) 0 %; HCT 37.3 % (34.0-46.0); HGB 12.7 gm/dL (11.4-16.0); Lymphocytes # (A) 0.7 k/uL (1.0-4.8); Lymphocytes % (A) 8 %; MCH 32.2 pg (25.0-35.0); MCV 94.6 fL (80.0-100.0); Mean Platelet Volume 6.8; Monocytes # (A) 0.4 k/uL (0-1.0); Monocytes % (A) 4 %; Neutrophils # (A) 8.1 k/uL (1.3-7.7); Neutrophils % (A) 86 %; Platelet Count 355 k/uL (150-450); RBC 3.94 m/uL (3.80-5.40); RDW 12.7 % (11.5-15.5); WBC 9.4 k/uL (3.8-10.6)
[2020-06-11 07:14] LABS: Glucose,Whole Blood 126 mg/dL (75-99)
[2020-06-11] MEDS: INSULIN ASPART (NovoLOG) 100 UNIT/ML VIAL SQ SCH ×4 (07:19→21:43)
[2020-06-11] MEDS: dexAMETHasone 2 MG TAB PO SCH (07:49)
[2020-06-11] MEDS: ASCORBIC ACID 500 MG TAB PO SCH (07:49)
[2020-06-11] MEDS: ENOXAPARIN 40 MG/0.4 ML SYRINGE SQ SCH (07:49)
[2020-06-11] MEDS: PIOGLITAZONE 30 MG TAB PO SCH (07:50)
[2020-06-11] MEDS: amLODIPine 5 MG TAB PO SCH (07:50)
[2020-06-11] MEDS: LOSARTAN 50 MG TAB PO SCH (07:50)
[2020-06-11] MEDS: CHOLECALCIFEROL 400 UNIT TAB PO SCH (07:50)
[2020-06-11] MEDS: RALOXIFENE 60 MG TAB PO SCH (07:50)
[2020-06-11] MEDS: ZINC SULFATE 220 MG CAP PO SCH (07:50)
[2020-06-11] MEDS: PANTOPRAZOLE 40 MG TABLET PO SCH (07:50)
--- NOTE | 2020-06-11 08:27 | XR ---
EXAMINATION TYPE: XR chest 1V portable DATE OF EXAM: 06/11/2020 Comparison: 06/08/2020 Clinical History: 70-year-old female Covid pneumonia Findings: Heart is mildly enlarged. Diffuse interstitial opacities persist. No sizable effusion. Impression: 1. Stable mild cardiomegaly. 2. Stable diffuse interstitial infiltrates.
[2020-06-11] MEDS: ALBUTEROL HFA INHALER INHALATION SCH ×4 (08:47→21:09)
[2020-06-11 09:15] LABS: African American GFR (CKD) 107.8 (60.0-200.0); Anion Gap 8.1 mmol/L (4.00-12.00); BUN/Creat Ratio 26.67 Ratio (12.00-20.00); Calcium 8.6 mg/dL (8.7-10.3); Carbon Dioxide 23.9 mmol/L (21.6-31.8); Potassium 4.2 mmol/L (3.5-5.5)
--- NOTE | 2020-06-11 10:37 | P.PN ---
Subjective Progress Note Date: 06/11/20 oon 06/11/2020 the patient is doing well. She is currently on oxygen at 4 L per minute nasal cannula. No worsening shortness of breath. Chest x-ray from today shows bilateral pulmonary infiltrates with some limited infiltration of the lung peripheries bilaterally. Her cough is limited. It's improving. She has better energy. No nausea. No vomiting. Her GI symptoms of also improved.history of Her Oxygen Flow down to 2 L. She'll Be Asked to Increase Her Level of Activity As Tolerated. No Other New Complaints for Now. No Altered Mentation. Objective - Vital Signs Vital signs: Vital Signs Temp 98.3 F 06/11/20 10:14 Pulse 70 06/11/20 10:14 Resp 17 06/11/20 10:14 BP 123/78 06/11/20 10:14 Pulse Ox 96 06/11/20 10:14 Intake & Output 06/10/20 06/11/20 06/11/20 18:59 06:59 18:59 Intake Total 800 Balance 800 Weight 93.894 kg Intake: Intake, IV Titration 800 Amount Sodium Chloride 0.9% 1, 800 000 ml @ 100 mls/hr IV . Q10H [facility] Rx#:[id number] Other: Voiding Method Toilet # Voids 4 - Exam HEENT: Normocephalic. Neck is supple. Pupils reactive. Nostrils clear. Oral cavity is moist. Ears reveal no drainage. Neck reveals no JVD, carotid bruits, or thyromegaly. CHEST EXAMINATION: Decreased BS in all lung mays. CARDIAC: Normal S1, S2 with no gallops. No murmurs ABDOMEN: Soft. Bowel sounds normal. No organomegaly. No abdominal bruits. Extremities: reveal no edema. No clubbing or cyanosis Neurologically awake, alert, oriented x3 with well-coordinated movements. No focal deficits noted Skin: No rash or skin lesions. Psychiatric: Coperative. Nonsuicidal Musculoskeletal: No joint swelling or deformity. Normal range of motion. - Labs CBC & Chem 7: 06/11/20 06:08 06/11/20 06:08 Labs: Abnormal Lab Results - Last 24 Hours (Table) 06/10/20 06/10/20 06/10/20 Range/Units 06:32 11:30 16:44 Neutrophils # (1.3-7.7) k/uL Lymphocytes # (1.0-4.8) k/uL Chloride 110 H (96-109) mmol/L BUN/Creatinine Ratio 24.29 H (12.00-20.00) Ratio Glucose 162 H (70-110) mg/dL POC Glucose (mg/dL) 150 H 244 H (75-99) mg/dL Calcium (8.7-10.3) mg/dL 06/10/20 06/11/20 06/11/20 Range/Units 20:15 06:08 06:08 Neutrophils # 8.1 H (1.3-7.7) k/uL Lymphocytes # 0.7 L (1.0-4.8) k/uL Chloride (96-109) mmol/L BUN/Creatinine Ratio 26.67 H (12.00-20.00) Ratio Glucose 150 H (70-110) mg/dL POC Glucose (mg/dL) 139 H (75-99) mg/dL Calcium 8.6 L (8.7-10.3) mg/dL 06/11/20 Range/Units 07:10 Neutrophils # (1.3-7.7) k/uL Lymphocytes # (1.0-4.8) k/uL Chloride (96-109) mmol/L BUN/Creatinine Ratio (12.00-20.00) Ratio Glucose (70-110) mg/dL POC Glucose (mg/dL) 126 H (75-99) mg/dL Calcium (8.7-10.3) mg/dL Microbiology - Last 24 Hours (Table) 06/08/20 21:12 Blood Culture - Preliminary Blood No Growth after 48 hours 06/08/20 21:12 Blood Culture - Preliminary Blood No Growth after 48 hours Assessment and Plan Plan: 1 acute COVID 19 related pneumonitis with secondary hypoxic respiratory failure 2 gastrointestinal symptoms secondary to coronary viral infection 3 diabetes mellitus 4 hypertension 5 obstructive sleep apnea. 6 osteoporosis 7 history of acid reflux with a previous history of fundoplication. Plan The patient will continue the Decadron, vitamin C and vitamin D. The patient was not offered Remdesivir as the patient was out of the treatment window. She is on 4 L of oxygen by nasal cannula. Chest x-ray from today's essentially unchanged. There is some peripheral infiltration bilaterally. There is also some cardiomegaly.she is clinically improving. We'll attempt to wean down FiO2.
[2020-06-11] MEDS ORDERED: SENNOSIDES-DOCUSATE SODIUM 1 EACH TAB PO STA (11:12)
[2020-06-11 11:58] LABS: Glucose,Whole Blood 130 mg/dL (75-99)
--- NOTE | 2020-06-11 12:54 | P.PN ---
Subjective Progress Note Date: 06/11/20 This is a 70-year-old female admitted with acute covid pneumonitis and multiple other medical issues. Maintained on seeing, vitamin C, vitamin D and Decadron. Patient was beyond the treatment window therefore not on Remdesevir. O2 sats in the 90s on 4 L nasal cannula. Chest x-ray reported stable diffuse interstitial infiltrates. Afebrile, normal WBC. Blood cultures reporting no growth after 48 hours. Good diet intake .Blood sugars controlled. Nausea, vomiting, diarrhea have subsided. Tolerating diet with no abdominal pain. Complains of constipation currently. Objective - Vital Signs Vital signs: Vital Signs Temp 98.3 F 06/11/20 10:14 Pulse 70 06/11/20 10:14 Resp 17 06/11/20 10:14 BP 123/78 06/11/20 10:14 Pulse Ox 96 06/11/20 10:14 Intake & Output 06/10/20 06/11/20 06/11/20 18:59 06:59 18:59 Intake Total 800 Balance 800 Weight 93.894 kg Intake: Intake, IV Titration 800 Amount Sodium Chloride 0.9% 1, 800 000 ml @ 100 mls/hr IV . Q10H [facility] Rx#:[id number] Other: Voiding Method Toilet # Voids 4 - Exam PHYSICAL EXAMINATION: GENERAL: Sitting up at side of bed, no acute distress HEENT: Normocephalic. Neck is supple. Pupils reactive. Oral mucosa moist Neck: Supple, no JVD CHEST EXAMINATION: Diminished, no rhonchi, crackles or wheezing CARDIAC: Normal S1, S2 with no gallops. No murmurs ABDOMEN: Soft. Nontender, Nondistended, no guarding .positive Bowel sounds. Extremities: reveal no edema. No clubbing or cyanosis Neurologically awake, alert, oriented x3 , No focal deficits noted Skin: No rash, skin warm and dry. - Labs CBC & Chem 7: 06/11/20 06:08 06/11/20 06:08 Labs: Abnormal Lab Results - Last 24 Hours (Table) 06/10/20 06/10/20 06/10/20 Range/Units 06:32 11:30 16:44 Neutrophils # (1.3-7.7) k/uL Lymphocytes # (1.0-4.8) k/uL Chloride 110 H (96-109) mmol/L BUN/Creatinine Ratio 24.29 H (12.00-20.00) Ratio Glucose 162 H (70-110) mg/dL POC Glucose (mg/dL) 150 H 244 H (75-99) mg/dL Calcium (8.7-10.3) mg/dL 06/10/20 06/11/20 06/11/20 Range/Units 20:15 06:08 06:08 Neutrophils # 8.1 H (1.3-7.7) k/uL Lymphocytes # 0.7 L (1.0-4.8) k/uL Chloride (96-109) mmol/L BUN/Creatinine Ratio 26.67 H (12.00-20.00) Ratio Glucose 150 H (70-110) mg/dL POC Glucose (mg/dL) 139 H (75-99) mg/dL Calcium 8.6 L (8.7-10.3) mg/dL 06/11/20 Range/Units 07:10 Neutrophils # (1.3-7.7) k/uL Lymphocytes # (1.0-4.8) k/uL Chloride (96-109) mmol/L BUN/Creatinine Ratio (12.00-20.00) Ratio Glucose (70-110) mg/dL POC Glucose (mg/dL) 126 H (75-99) mg/dL Calcium (8.7-10.3) mg/dL Microbiology - Last 24 Hours (Table) 06/08/20 21:12 Blood Culture - Preliminary Blood No Growth after 48 hours 06/08/20 21:12 Blood Culture - Preliminary Blood No Growth after 48 hours Assessment and Plan Assessment: Acute Covid-19 pneumonitis Acute hypoxic respiratory failure secondary to the above Nausea vomiting and diarrhea secondary to the above, resolved Diabetes mellitus type 2 Gastroesophageal reflux disease History of fundoplication Obstructive sleep apnea Hypertension Plan: Continue on current medication regime ,monitoring and symptomatic treatment. Continue on Decadron, vitamin C, vitamin D, zinc. Continue weaning oxygen. Complains of constipation, Senokot ordered. Good diet intake,DC IV fluids. Increase ambulation as tolerated. Follow closely with pulmonary. The impression and plan of care has been dictated as directed. : I performed a history and examination of this patient, discussed the same with the dictator. I agree with the dictator's note ,documented as a scribe. Any additional findings or plans will be noted.
[2020-06-11 16:54] LABS: Glucose,Whole Blood 173 mg/dL (75-99)
[2020-06-11] MEDS: REPAGLINIDE 1 MG TAB PO SCH (17:36)
[2020-06-11 20:54] LABS: Glucose,Whole Blood 136 mg/dL (75-99)
[2020-06-11] MEDS ORDERED: SENNOSIDES-DOCUSATE SODIUM 1 EACH TAB PO SCH (21:00)
[2020-06-11] MEDS: MONTELUKAST 10 MG TAB PO SCH (21:47)
[2020-06-12 06:03] VITALS: RESP 17
[2020-06-12 06:24] LABS: Basophils # (A) 0.1 k/uL (0-0.2); Basophils % (A) 1 %; Eosinophils % (A) 0 %; HCT 40.9 % (34.0-46.0); HGB 13.4 gm/dL (11.4-16.0); Lymphocytes # (A) 1.1 k/uL (1.0-4.8); Lymphocytes % (A) 13 %; MCH 30.9 pg (25.0-35.0); MCHC 32.8 g/dL (31.0-37.0); MCV 94.2 fL (80.0-100.0); Mean Platelet Volume 6.6; Monocytes # (A) 0.4 k/uL (0-1.0); Monocytes % (A) 5 %; Neutrophils # (A) 6.6 k/uL (1.3-7.7); Neutrophils % (A) 79 %; Platelet Count 421 k/uL (150-450); RBC 4.34 m/uL (3.80-5.40); RDW 13.1 % (11.5-15.5); WBC 8.3 k/uL (3.8-10.6)
[2020-06-12 07:12] LABS: Glucose,Whole Blood 118 mg/dL (75-99)
[2020-06-12] MEDS: INSULIN ASPART (NovoLOG) 100 UNIT/ML VIAL SQ SCH ×2 (08:51→12:56)
[2020-06-12] MEDS: ASCORBIC ACID 500 MG TAB PO SCH (08:52)
[2020-06-12] MEDS: amLODIPine 5 MG TAB PO SCH (08:52)
[2020-06-12] MEDS: ENOXAPARIN 40 MG/0.4 ML SYRINGE SQ SCH (08:53)
[2020-06-12] MEDS: RALOXIFENE 60 MG TAB PO SCH (08:53)
[2020-06-12] MEDS: CHOLECALCIFEROL 400 UNIT TAB PO SCH (08:53)
[2020-06-12] MEDS: dexAMETHasone 2 MG TAB PO SCH (08:53)
[2020-06-12] MEDS: PANTOPRAZOLE 40 MG TABLET PO SCH (08:53)
[2020-06-12] MEDS: PIOGLITAZONE 30 MG TAB PO SCH (08:53)
[2020-06-12] MEDS: LOSARTAN 50 MG TAB PO SCH (08:53)
[2020-06-12] MEDS: ZINC SULFATE 220 MG CAP PO SCH (08:54)
[2020-06-12] MEDS: ALBUTEROL HFA INHALER INHALATION SCH ×2 (09:25→12:08)
[2020-06-12 09:34] LABS: African American GFR (CKD) 102.5 (60.0-200.0); Anion Gap 6.4 mmol/L (4.00-12.00); BUN/Creat Ratio 24.29 Ratio (12.00-20.00); Calcium 8.9 mg/dL (8.7-10.3); Carbon Dioxide 26.6 mmol/L (21.6-31.8); Non-African American GFR(CKD) 88.4 (60.0-200.0); Potassium 4.1 mmol/L (3.5-5.5)
[2020-06-12 10:17] VITALS: BP 111/73; PULSE 62; TEMP 97.5
--- NOTE | 2020-06-12 10:53 | P.DS ---
Providers Date of admission: 06/08/20 22:37 Expected date of discharge: 06/12/20 Attending physician: Miguelito Paredes MD Consults: 06/08/20 23:19 Consult Physician Stat Consulting Provider: Jono Chaves Reason/Comments: covid, pneumonia Do you want consulting provider notified?: Yes, Notify in am Primary care physician: Qian Paredes Hospital Course: Final Diagnoses: Acute Covid-19 pneumonitis Acute hypoxic respiratory failure secondary to the above, improved. Nausea vomiting and diarrhea secondary to the above, resolved Diabetes mellitus type 2 Gastroesophageal reflux disease History of fundoplication Obstructive sleep apnea Hypertension Hospital course:This is a 70-year-old female admitted with acute covid pneumonitis and multiple other medical issues. Maintained on seeing, vitamin C, vitamin D and Decadron. Patient was beyond the treatment window therefore not on Remdesevir. O2 sats in the 90s on 4 L nasal cannula. Chest x-ray reported stable diffuse interstitial infiltrates. Afebrile, normal WBC. Blood cultures reporting no growth after 48 hours. Good diet intake .Blood sugars controlled. Nausea, vomiting, diarrhea have subsided. Tolerating diet with no abdominal pain. Complains of constipation currently. Significant clinical improvement. Maintaining O2 sats of 95% on room air. Denies nausea vomiting or diarrhea. Denies chest pain palpitations or shortness of breath. Patient will be discharged home today pending final DC recommendations and clearance from pulmonary. The impression and plan of care has been dictated as directed. : I performed a history and examination of this patient, discussed the same with the dictator. I agree with the dictator's note ,documented as a scribe. Any additional findings or plans will be noted. Patient Condition at Discharge: Stable Plan - Discharge Summary New Discharge Prescriptions: New Aspirin EC [Ecotrin Low Dose] 81 mg PO DAILY #60 tablet. Zinc Sulfate [Orazinc] 220 mg PO DAILY cap Sennosides-Docusate Sodium [Senokot-S] 2 each PO HS tab Albuterol Inhaler [Ventolin Hfa Inhaler] 1 puff INHALATION RT-QID #1 inh Ascorbic Acid [Vitamin C] 1,000 mg PO DAILY tab Continue Montelukast [Singulair] 10 mg PO QAM Raloxifene [Evista] 60 mg PO QAM Ergocalciferol [Vitamin D2 (DRISDOL)] 50,000 unit PO JAMES Omeprazole [PriLOSEC] 40 mg PO QAM metFORMIN HCL [Glucophage] 500 mg PO DAILY Amitriptyline HCl [Elavil] 25 mg PO HS PRN PRN Reason: RELAX VOCAL CORDS Losartan [Cozaar] 50 mg PO QAM amLODIPine [Norvasc] 5 mg PO QAM Pioglitazone HCl 30 mg PO DAILY Repaglinide [Prandin] 1 mg PO DAILY Discharge Medication List Ergocalciferol [Vitamin D2 (DRISDOL)] 50,000 unit PO JAMES 08/07/16 [History] Montelukast [Singulair] 10 mg PO QAM 08/07/16 [History] Omeprazole [PriLOSEC] 40 mg PO QAM 08/07/16 [History] Raloxifene [Evista] 60 mg PO QAM 08/07/16 [History] Amitriptyline HCl [Elavil] 25 mg PO HS PRN 01/11/19 [History] Losartan [Cozaar] 50 mg PO QAM 01/11/19 [History] amLODIPine [Norvasc] 5 mg PO QAM 01/11/19 [History] metFORMIN HCL [Glucophage] 500 mg PO DAILY 01/11/19 [History] Pioglitazone HCl 30 mg PO DAILY 06/08/20 [History] Repaglinide [Prandin] 1 mg PO DAILY 06/08/20 [History] Albuterol Inhaler [Ventolin Hfa Inhaler] 1 puff INHALATION RT-QID #1 inh 06/12/20 [Rx] Ascorbic Acid [Vitamin C] 1,000 mg PO DAILY tab 06/12/20 [Rx] Aspirin EC [Ecotrin Low Dose] 81 mg PO DAILY #60 tablet. 06/12/20 [Rx] Sennosides-Docusate Sodium [Senokot-S] 2 each PO HS tab 06/12/20 [Rx] Zinc Sulfate [Orazinc] 220 mg PO DAILY cap 06/12/20 [Rx] Follow up Appointment(s)/Referral(s): Qian Paredes DO [Primary Care Provider] - 06/14/20 2:00 pm (This will virtual visit. office will call to get set up) Activity/Diet/Wound Care/Special Instructions: Pending O2 sat 80% or better on room air, pending pulmonary clearance and final DC recommendations
--- NOTE | 2020-06-12 11:03 | P.PN ---
Subjective Progress Note Date: 06/12/20 on 06/12/2020, the patient is on room air oxygen. She is feeling great. No respiratory difficulties at this point in time. He is being made to discharge this patient home today. No nausea. No vomiting. No abdominal pain. Altered mentation. Objective - Vital Signs Vital signs: Vital Signs Temp 97.5 F L 06/12/20 10:00 Pulse 62 06/12/20 10:00 Resp 17 06/12/20 10:00 BP 111/73 06/12/20 10:00 Pulse Ox 95 06/12/20 10:00 Intake & Output 06/11/20 06/12/20 06/12/20 18:59 06:59 18:59 Other: Voiding Method Toilet # Voids 2 1 1 - Exam HEENT: Normocephalic. Neck is supple. Pupils reactive. Nostrils clear. Oral cavity is moist. Ears reveal no drainage. Neck reveals no JVD, carotid bruits, or thyromegaly. CHEST EXAMINATION: Decreased BS in all lung mays. CARDIAC: Normal S1, S2 with no gallops. No murmurs ABDOMEN: Soft. Bowel sounds normal. No organomegaly. No abdominal bruits. Extremities: reveal no edema. No clubbing or cyanosis Neurologically awake, alert, oriented x3 with well-coordinated movements. No focal deficits noted Skin: No rash or skin lesions. Psychiatric: Coperative. Nonsuicidal Musculoskeletal: No joint swelling or deformity. Normal range of motion. - Labs CBC & Chem 7: 06/12/20 06:02 06/12/20 06:02 Labs: Abnormal Lab Results - Last 24 Hours (Table) 06/11/20 06/11/20 06/11/20 Range/Units 11:51 16:53 20:49 BUN/Creatinine Ratio (12.00-20.00) Ratio Glucose (70-110) mg/dL POC Glucose (mg/dL) 130 H 173 H 136 H (75-99) mg/dL 06/12/20 06/12/20 Range/Units 06:02 07:11 BUN/Creatinine Ratio 24.29 H (12.00-20.00) Ratio Glucose 133 H (70-110) mg/dL POC Glucose (mg/dL) 118 H (75-99) mg/dL Microbiology - Last 24 Hours (Table) 06/08/20 21:12 Blood Culture - Preliminary Blood No Growth after 72 hours 06/08/20 21:12 Blood Culture - Preliminary Blood No Growth after 72 hours Assessment and Plan Plan: 1 acute COVID 19 related pneumonitis with secondary hypoxic respiratory failure improved and the patient is currently on room air oxygen. 2 gastrointestinal symptoms secondary to coronary viral infection 3 diabetes mellitus 4 hypertension 5 obstructive sleep apnea. 6 osteoporosis 7 history of acid reflux with a previous history of fundoplication. Plan The patient will continue the Decadron, vitamin C and vitamin D. The patient was not offered Remdesivir as the patient was out of the treatment window. he is improved. She is on room air oxygen.discharge home today.follow up this patient on outpatient basis regarding post pneumonia care
[2020-06-12 11:51] LABS: Glucose,Whole Blood 139 mg/dL (75-99)
== END 2020-06-12 13:52 | disposition home or self-care (01) | DRG 177 ==
LOC: EC 19:26 → 6NMEDSUR 22:37 → 4SSUR 06-09 12:40
PROVIDERS: ADMIT Family Medicine; ATTEND Family Medicine
DX: U07.1 COVID-19 (principal); J12.89 Other viral pneumonia; J96.01 Acute respiratory failure with hypoxia; E11.9 Type 2 diabetes mellitus without complications; I10 Essential (primary) hypertension; E66.9 Obesity, unspecified; K21.9 Gastro-esophageal reflux disease without esophagitis; G47.33 Obstructive sleep apnea (adult) (pediatric); M81.0 Age-related osteoporosis without current pathological fracture; Z71.3 Dietary counseling and surveillance; Z68.37 Body mass index [BMI] 37.0-37.9, adult; Z79.84 Long term (current) use of oral hypoglycemic drugs; Z79.899 Other long term (current) drug therapy; Z90.49 Acquired absence of other specified parts of digestive tract; Z90.710 Acquired absence of both cervix and uterus; Z98.890 Other specified postprocedural states
CPT/HCPCS: 36415; 71045; 71046; 80048; 80053; 82728; 83605; 83615; 83735; 84145; 85025; 85379; 85610; 85730; 86140; 87040; 93005; 94640; 96361; 96365; 96375; 96376; 99285

== ENCOUNTER → 2021-04-02 | Outpatient (CLI) | payer MEDICARE ==
--- NOTE | 2021-04-03 09:38 | MM ---
Reason for exam: screening (asymptomatic). Last mammogram was performed 1 year and 1 month ago. History: Patient is postmenopausal. Family history of breast cancer in maternal aunt. Benign left mammotome panel of the left breast, May 31, 2012. Reductions of both breasts, December 2010. Taking hormonal contraceptives. Physical Findings: A clinical breast exam by your physician is recommended on an annual basis and results should be correlated with mammographic findings. MG 3D Screening Mammo W/Cad Bilateral CC and MLO view(s) were taken. XCCL view(s) were taken of the right breast. Prior study comparison: February 17, 2020, bilateral MG screening mammo w CAD. January 11, 2019, bilateral MG screening mammo w CAD. There are scattered fibroglandular densities. Stable benign calcifications. There is no discrete abnormality. No significant changes when compared with prior studies. ASSESSMENT: Benign, BI-RAD 2 RECOMMENDATION: Routine screening mammogram of both breasts in 1 year.
== END | disposition home or self-care (01) ==
LOC: RADMAMWWP 07:12
PROVIDERS: ATTEND Family Medicine
DX: Z12.31 Encounter for screening mammogram for malignant neoplasm of breast (principal); Z78.0 Asymptomatic menopausal state; Z80.3 Family history of malignant neoplasm of breast
CPT/HCPCS: 77063; 77067

== ENCOUNTER → 2023-05-11 | Outpatient (CLI) | payer MEDICARE ==
--- NOTE | 2023-05-11 09:35 | MM ---
Reason for Exam: Screening (asymptomatic). Last screening mammogram was performed 12 month(s) ago. Patient History: Menarche at age 13. First Full-Term at age 20. Left ovary removed at age 51. Hysterectomy at age 51. Postmenopausal. Used Hormonal Contraceptives. 12/2010, Bilateral Reduction. 05/31/2012, Benign Core Biopsy on the left side. Maternal aunt had breast cancer at or over age 50. Sister had breast cancer, age 60. Sister had breast cancer, age 40. Risk Values: Izabel 5 year model risk: 9.7%. NCI Lifetime model risk: 23.3%. Prior Study Comparison: 02/17/2020 Bilateral Screening Mammogram, [facility]. 04/02/2021 Bilateral Screening Mammogram, [facility]. 05/08/2022 Bilateral MG 3D screening mammo w/cad, [facility]. Tissue Density: The breast tissue is heterogeneously dense. This may lower the sensitivity of mammography. Findings: Analyzed By CAD. Left breast biopsy clips. There is no suspicious group of microcalcifications or new suspicious mass. Benign-appearing calcifications bilaterally. Overall Assessment: Benign, BI-RAD 2 Management: Screening Mammogram of both breasts in [address] [facility] will attempt to contact patient to return for supplemental views and ultrasound if indicated. Patient should continue monthly self-breast exams. A clinical breast exam by your physician is recommended on an annual basis. This exam should not preclude additional follow-up of suspicious palpable abnormalities. Note on Izabel scores and lifetime risk: 1. A Izabel score greater than 3% is considered moderate risk. If this is the case, consider specialist referral to assess eligibility for a risk reducing agent. 2. If overall lifetime risk for the development of breast cancer is 20% or higher, the patient may qualify for future screening with alternating mammogram and breast MRI. Electronically signed and approved by: Jono Santos DO
== END | disposition home or self-care (01) ==
LOC: RADMAMWWP 06:52
PROVIDERS: ATTEND Family Medicine
DX: Z12.31 Encounter for screening mammogram for malignant neoplasm of breast (principal); Z80.3 Family history of malignant neoplasm of breast; Z78.0 Asymptomatic menopausal state
CPT/HCPCS: 77063; 77067

== ENCOUNTER 2023-10-22 08:22 | Day surgery (SDC) | payer MEDICARE ==
[~2023-10-22 08:22] MED LIST changes: -LIDOCAINE 1% 20 ML VIAL (10MG/ML) FOR IV START INTRADERMA PRN; -LIDOCAINE 1% INJ 10MG/ML (20 ML MDV) ONE; -PROPOFOL 10 MG/ML 20 ML VIAL IV ONE
[2023-10-22] MEDS: LACTATED RINGERS 1,000 ML IV ONE (08:42)
[2023-10-22 08:51] LABS: Glucose,Whole Blood 118 mg/dL (70-110)
[2023-10-22 09:13] VITALS: TEMP 97.6
[2023-10-22] MEDS ORDERED: PROPOFOL 10 MG/ML 20 ML VIAL IV ONE (09:23)
--- NOTE | 2023-10-22 09:26 | P.GSHP ---
History of Present Illness H&P Date: 10/22/23 Chief Complaint: history of colon polyps this a 73-year-old female who presents today for colonoscopy. Patient's previous history of colon polyps.her last colonoscopy was over 5 years ago. Past Medical History Past Medical History: Diabetes Mellitus, Hypertension, Sleep Apnea/CPAP/BIPAP Additional Past Medical History / Comment(s): uses CPAP History of Any Multi-Drug Resistant Organisms: None Reported Past Surgical History: Appendectomy, Breast Surgery, Cholecystectomy, Hysterectomy, Tubal Ligation Additional Past Surgical History / Comment(s): partial hysterectomy, hiatal hernia, breast reduction, colonoscopy Past Anesthesia/Blood Transfusion Reactions: No Reported Reaction Smoking Status: Never smoker Medications and Allergies Home Medications Medication Instructions Recorded Confirmed Type Ergocalciferol [Vitamin D2 50,000 unit PO JAMES 08/07/16 10/20/23 History (DRISDOL)] Omeprazole [PriLOSEC] 40 mg PO QAM 08/07/16 10/20/23 History Raloxifene [Evista] 60 mg PO QAM 08/07/16 10/20/23 History Losartan [Cozaar] 50 mg PO QAM 01/11/19 10/20/23 History amLODIPine [Norvasc] 5 mg PO QAM 01/11/19 10/20/23 History metFORMIN HCL [Glucophage] 500 mg PO QAM 01/11/19 10/20/23 History Pioglitazone HCl 30 mg PO QAM 06/08/20 10/20/23 History Repaglinide [Prandin] 1 mg PO QAM 06/08/20 10/20/23 History Rosuvastatin [Crestor] 20 mg PO Q7D 10/20/23 10/20/23 History Allergies Allergy/AdvReac Type Severity Reaction Status Date / Time eucalyptus Allergy Unknown Cough Verified 10/20/23 14:44 gluten Allergy Unknown Cough, Verified 10/20/23 14:44 Stomach symptoms. perfume Allergy Unknown Cough Verified 10/20/23 14:44 Sulfa (Sulfonamide Allergy Unknown Itching, Verified 10/20/23 14:44 Antibiotics) Rash Surgical - Exam Vital Signs Temp Pulse Resp BP Pulse Ox 97.6 F 86 18 127/73 95 10/22/23 08:41 10/22/23 08:41 10/22/23 08:41 10/22/23 08:41 10/22/23 08:41 - General well developed, well nourished, no distress - Eyes PERRL - ENT normal pinna - Neck no masses - Respiratory normal expansion - Abdomen Abdomen: soft, non tender Results - Labs Abnormal Lab Results - Last 24 Hours (Table) 10/22/23 Range/Units 08:50 POC Glucose (mg/dL) 118 H (70-110) mg/dL Assessment and Plan Assessment: history of colon polyps. We'll perform colonoscopy.
--- NOTE | 2023-10-22 09:41 | P.OP ---
Date of Procedure: 10/22/23 Preoperative Diagnosis: history of colon polyps Postoperative Diagnosis: diverticulosis Procedure(s) Performed: colonoscopy Anesthesia: MAC Surgeon: Fritz Nam Pathology: none sent Condition: stable Disposition: PACU Description of Procedure: the patient's placed on the endoscopy table in the lateral position. She received IV sedation. Digital rectal exam was performed. This revealed no abnormalities. The flexible colonoscope was then placed patient anus and passed throughout the entire colon. The ileocecal valve was visualized. Cecum, ascending and transverse colon appeared normal. In the descending and sigmoid colon there were diverticular changes noted. The scope was then brought back the rectum this appeared normal. Scope withdrawn for patient.
[2023-10-22 09:52] LABS: Glucose,Whole Blood 112 mg/dL (70-110)
[2023-10-22 10:40] VITALS: BP 123/63; PULSE 71; RESP 17
== END 2023-10-22 10:29 | disposition home or self-care (01) ==
LOC: ORWHC2ENDO 08:22
PROVIDERS: ATTEND Surgery
DX: Z12.11 Encounter for screening for malignant neoplasm of colon (principal); K57.30 Diverticulosis of large intestine without perforation or abscess without bleeding; I10 Essential (primary) hypertension; E11.9 Type 2 diabetes mellitus without complications; G47.33 Obstructive sleep apnea (adult) (pediatric); Z90.49 Acquired absence of other specified parts of digestive tract; Z90.710 Acquired absence of both cervix and uterus; Z86.010 Personal history of colon polyps; Z98.51 Tubal ligation status; Z98.890 Other specified postprocedural states; Z79.899 Other long term (current) drug therapy; Z79.84 Long term (current) use of oral hypoglycemic drugs; Z88.2 Allergy status to sulfonamides; Z91.09 Other allergy status, other than to drugs and biological substances
CPT/HCPCS: J2704; G0105

== ENCOUNTER → 2024-05-12 | Outpatient (CLI) | payer MEDICARE ==
--- NOTE | 2024-05-19 12:05 | MM ---
Reason for Exam: Screening (asymptomatic). Last screening mammogram was performed 12 month(s) ago. Patient History: Menarche at age 13. First Full-Term at age 20. Left ovary removed at age 51. Hysterectomy at age 51. Postmenopausal. Used Hormonal Contraceptives. 12/2010, Bilateral Reduction. 05/31/2012, Benign Core Biopsy on the left side. Maternal aunt had breast cancer at or over age 50. Sister had breast cancer, age 60. Sister had breast cancer, age 40. Risk Values: Izabel 5 year model risk: 9.8%. NCI Lifetime model risk: 22.2%. Prior Study Comparison: 08/18/2016 Bilateral Screening Mammogram, [facility]. 12/16/2017 Bilateral Screening Mammogram, [facility]. 01/11/2019 Bilateral Screening Mammogram, [facility]. 02/17/2020 Bilateral Screening Mammogram, [facility]. 04/02/2021 Bilateral Screening Mammogram, [facility]. 05/08/2022 Bilateral MG 3D screening mammo w/cad, [facility]. 05/11/2023 Bilateral MG 3D screening mammo w/cad, [facility]. Tissue Density: There are scattered areas of fibroglandular density. Findings: Analyzed By CAD. Right breast: There is no suspicious group of microcalcifications or new suspicious mass. Benign-appearing calcifications right breast. Left breast: There is no suspicious group of microcalcifications or new suspicious mass. Benign-appearing calcifications left breast. Overall Assessment: Benign, BI-RAD 2 Management: Screening Mammogram of both breasts in [address] [facility] will attempt to contact patient to return for supplemental views and ultrasound if indicated. Patient should continue monthly self-breast exams. A clinical breast exam by your physician is recommended on an annual basis. This exam should not preclude additional follow-up of suspicious palpable abnormalities. Note on Izabel scores and lifetime risk: 1. A Izabel score greater than 3% is considered moderate risk. If this is the case, consider specialist referral to assess eligibility for a risk reducing agent. 2. If overall lifetime risk for the development of breast cancer is 20% or higher, the patient may qualify for future screening with alternating mammogram and breast MRI. [facility], , 05/19/2024 12:04 PM. Electronically signed and approved by: Jono Santos DO
== END | disposition home or self-care (01) ==
LOC: RADMAMWWP 11:02
PROVIDERS: ATTEND Family Medicine
DX: Z12.31 Encounter for screening mammogram for malignant neoplasm of breast (principal); Z78.0 Asymptomatic menopausal state; Z80.3 Family history of malignant neoplasm of breast; Z90.721 Acquired absence of ovaries, unilateral; R92.323 Mammographic fibroglandular density, bilateral breasts
CPT/HCPCS: 77063; 77067

== ENCOUNTER → 2024-11-23 | Outpatient (CLI) | payer MEDICARE ==
--- NOTE | 2024-11-24 08:34 | MR ---
EXAMINATION TYPE: MR brain wo/w con DATE OF EXAM: 11/23/2024 3:01 PM COMPARISON: None. 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 TECHNIQUE: Multi planar, multi sequence imaging was performed through the brain including: T1, T2, In version recovery, susceptibility weighted imaging and gradient echo imaging and Diffusion weighted im aging. The patient was then given intravenous contrast and multi planar, T1 fat-saturation images wer e obtained. IV Contrast: 9.5 mL Gadobutrol FINDINGS: Mild cerebral atrophy with proportional dilation of ventricular system. Diffusion-weighted imaging s hows no evidence of restricted diffusion to suggest acute/subacute infarct. Intracranial arterial bushra w voids are maintained. Midline structures show no abnormality. The susceptibility weighted images do not reveal any evidence for micro-hemorrhage. After administration of gadolinium, no abnormal enhanc ement is seen. The bone marrow signal is within normal limits. Paranasal sinuses and mastoid air cells: Mild scattered paranasal sinus disease. Visualized orbits: Orbital contents are intact. IMPRESSION: No evidence of intracranial mass, acute/subacute infarct, or abnormal enhancement [facility], , 11/24/2024 8:32 AM
== END | disposition home or self-care (01) ==
LOC: RADMRIMAIN 13:34
PROVIDERS: ATTEND Family Medicine
DX: H53.469 Homonymous bilateral field defects, unspecified side (principal); R26.89 Other abnormalities of gait and mobility; R20.2 Paresthesia of skin
CPT/HCPCS: 70553; A9585

== ENCOUNTER → 2025-01-20 | Outpatient (CLI) | payer MEDICARE ==
--- NOTE | 2025-01-20 11:17 | NM ---
EXAMINATION TYPE: NM stress lexiscan cardiolite DATE OF EXAM: 01/20/2025 COMPARISON: NONE CLINICAL INDICATION: Female, 74 years old with history of I20.9 angina; TECHNIQUE: After the intravenous administration of 10.24 mCi Tc 99m Sestamibi - Cardiolite resting S PECT images acquired 45 minutes post injection. The patient received 0.4mg Lexiscan, 25.2 mCi Tc 99m Sestamibi - Stress images obtained [address] injection FINDINGS: Review of stress and rest SPECT images demonstrates fixed perfusion defect involving the mid anterose ptal wall. No distinct reversibility seen. Gated analysis shows normal wall motion with an estimated left ventricular ejection fraction of 80 %. TID is calculated at 0.85, within normal limits. IMPRESSION: 1. Fixed perfusion defect involving the mid anteroseptal wall favored to represent attenuation artifa ct but can also be seen with old infarct. Clinically correlate. 2. No scintigraphic evidence for reversible ischemia. [facility], , 01/20/2025 11:14 AM
--- NOTE | 2025-01-20 11:18 | CA ---
Lexiscan Nuclear Stress Test Report Name: Linh Cruz Exam Date: 01/20/2025 09:36 Exam Location: [place] Stress Ht (in): 63 Wt (lb): 212 BSA: 1.98 Ordering Phys: Qian Paredes DO Referring Phys: Qian Paredes DO Technologist: DEDRICK,, Age: 74 Gender: F : 1950 Procedure CPT: Indications: I20.9 Angina ICD-10 Codes: Patient History: Chest pain, hypertension, diabetes and family history of heart disease. Medications: Meds past 24 hrs: Pretest Chest Pain: STRESS TEST Lexiscan Protocol Exercise Duration (min:sec): 02:[address] Depressions (mm): Angina Score: Haider Score: Resting HR (bpm): 72 Peak HR (bpm): 96 Resting BP (mmHg): 130 / 57 Peak BP (mmHg): 123 / 58 MPHR: 147 Target HR: 125 % MPHR: 65 METS: 1.0 Total Dose: Peak Dose: Atropine: Double Product: 11898 BP Response: Stress Termination: Infusion complete Stress Symptoms: No chest pain or symptoms Stress Summary: ECG ANALYSIS Resting ECG: Stress ECG: CONCLUSIONS Nondiagnostic stress test Dr. Guillermo Zaidi MD (Electronically Signed) Final Date: 20 January 2025 11:17
== END | disposition home or self-care (01) ==
LOC: RADNMMAIN 07:37
PROVIDERS: ATTEND Family Medicine
DX: I20.9 Angina pectoris, unspecified (principal); I10 Essential (primary) hypertension; E11.9 Type 2 diabetes mellitus without complications; Z82.49 Family history of ischemic heart disease and other diseases of the circulatory system
CPT/HCPCS: 93017; 78452; A9500